=== PATIENT | female | born 1930 | race African-American/Black ===

== ENCOUNTER 2017-03-04 07:20 | Inpatient (IN) | payer MEDICARE, OTHER ==
[~2017-03-04] VITALS: Ht 149.9 cm; Wt 65.8 kg
[2017-03-04 10:15] VITALS: BP 150/64
--- NOTE | 2017-03-04 12:11 | History & Physical ---
History and Physical History & Physicial Dictated for Int Med-Dr Hunt no. [id number]. KEVIN GARIBAY March 04, 2017 12:11
[2017-03-04 12:33] VITALS: BP 155/67
[2017-03-04] MEDS ORDERED: ACETAMINOPHEN-1 EAC1 ORAL (12:53)
[2017-03-04] MEDS ORDERED: FERROUS SULFAT500 G1 PO (12:53)
[2017-03-04] MEDS ORDERED: LATANOPROST2.5 ML BOTH EYES (12:53)
[2017-03-04] MEDS ORDERED: BENAZEPRIL HCL5 MG ORAL (12:53)
[2017-03-04] MEDS ORDERED: ASPIRIN-LOW81 MG ORAL (12:53)
[2017-03-04] MEDS ORDERED: Morphine Sulfate 2mg/ml Inj IVP PRN (14:15)
--- NOTE | 2017-03-04 14:22 | Consultation ---
History of Present Illness General Date patient seen: March 04, 2017 Referring physician: Dr. Bejarano Reason for Consultation: inpatient management Present Illness HPI 86 year old female with hx of HTN, was taken to [place] with CC of abdominal pain and weakness. she was diagnosed to have gallstone pancreatitis with possible CBD mass vs stone. she is transferred to [facility] for further care. Allergies: Coded Allergies: NO KNOWN ALLERGIES (Verified Allergy, Unknown, 03/04/17) Medication History Scheduled Aspirin (Aspirin EC), 81 MG ORAL DAILY, (Reported) Benazepril Hcl (Benazepril Hcl), 20 MG ORAL DAILY, (Reported) Ferrous Sulfate, Dried (Ferrous Sulfate), 325 MG PO DAILY, (Reported) Latanoprost* (Xalatan*), 1 DROP BOTH EYES BEDTIME, (Reported) Scheduled PRN Acetaminophen With Codeine (T#3) (Tylenol #3 Tab*), 1 TAB ORAL Q6HR PRN for For Pain, (Reported) Patient History Healthcare decision maker Resuscitation status Full Code Advanced Directive on File Past Medical/Surgical History Past Medical/Surgical History: (1) HTN (hypertension) Review of Systems All Other Systems: negative except mentioned in HPI Physical Exam General Appearance: WD/WN, alert Lines, tubes and drains: peripheral, central line Neck: non-tender, normal alignment Respiratory/Chest: chest wall non-tender, lungs clear Cardiovascular/Chest: normal peripheral pulses, normal rate Last 24 Hour Vital Signs Date Time Temp Pulse Resp B/P Pulse Ox O2 Delivery O2 Flow Rate FiO2 03/04/17 12:33 97.5 65 18 155/67 96 Room Air 03/04/17 10:15 97.9 62 18 150/64 96 Room Air Height (Feet): 4 Height (Inches): 11.00 Weight (Pounds): 145 Medications Current Medications Medications (Trade) Dose Ordered Sig/Keenan Route PRN Reason Start Time Stop Time Status Last Admin Dose Admin Dextrose (Dextrose 50%) STAT PRN IV Hypoglycemia 03/04/17 13:45 04/03/17 13:44 UNV Dextrose/ Electrolytes (D5 0.45%NS W/ KCl 20mEq) 1,000 ml @ 55 mls/hr [id number] IV 03/04/17 13:30 04/03/17 13:29 UNV Morphine Sulfate (Morphine Sulfate) 2 mg ONCE ONCE IVP 03/04/17 13:30 03/04/17 13:31 UNV Morphine Sulfate (Morphine Sulfate) 2 mg Q3HR PRN IVP Moderate Pain (Pain Scale 4-6) 03/04/17 13:45 03/11/17 13:44 UNV Pantoprazole (Protonix) 40 mg DAILY IV 03/05/17 09:00 04/04/17 08:59 UNV Assessment/Plan Problem List: (1) Cholecystitis ICD Codes: K81.9 - Cholecystitis, unspecified SNOMED: 32223753, 77141635 (2) Common bile duct (CBD) obstruction ICD Codes: K83.1 - Obstruction of bile duct SNOMED: 31796424 (3) Pancreatitis ICD Codes: K85.90 - Acute pancreatitis without necrosis or infection, unspecified SNOMED: 27311250 (4) HTN (hypertension) ICD Codes: I10 - Essential (primary) hypertension SNOMED: 16112623 Assessment/Plan npo iV antibiotics IV flfudis GI evaluation monitor bp IV antihypertensives STEPHANIE DUFFY March 04, 2017 14:21
[2017-03-04] MEDS ORDERED: Enalaprilat 2.5mg/2ml Inj IV PRN (14:30)
[2017-03-04] MEDS ORDERED: Mylanta II UD 30ml ORAL PRN (14:30)
[2017-03-04] MEDS ORDERED: Morphine Sulfate 2mg/ml Inj IVP ONE (14:30)
[2017-03-04] MEDS ORDERED: Nitroglycerin Subl 0.4mg tab (Bottle Of 25) SL PRN (14:30)
[2017-03-04 16:02] VITALS: BP 156/76
[2017-03-04] MEDS: D5 1/2NS w/KCl 20mEq 1,000 ML IV SCH (16:20)
[2017-03-04] MEDS: Morphine Sulfate 2mg/ml Inj IVP PRN (17:36)
[2017-03-04] MEDS ORDERED: D5 1/2NS 1,000 ML IV SCH (17:40)
--- NOTE | 2017-03-04 18:32 | History and Physical Report ---
DATE OF ADMISSION: 03/04/[address] Hunt. CHIEF COMPLAINT: The patient is an 86-year-old female who presents with chief complaint of stomach pain. HISTORY OF PRESENT ILLNESS: It began approximately two weeks prior to admission. The patient has had off and on epigastric pain. Pain radiates to her back and to her right shoulder. The patient states the pain also radiates into her chest. The patient has had fevers and chills. The patient denies nausea or vomiting. The patient presented to [facility] emergency room. The patient is transferred to [facility] for insurance purposes. The patient is admitted for epigastric pain to rule out acute cholecystitis. REVIEW OF SYSTEMS: Constitutional: The patient denies weight loss or weight gain. The patient complains of subjective fevers and chills as above. HEENT: The patient denies ear or throat pain. The patient denies headache. Cardiovascular: The patient complains of chest pain as above. The patient denies palpitations. Abdominal: The patient complains of epigastric pain as above. The patient denies nausea, vomiting, or constipation. Genitourinary: The patient denies dysuria or increased frequency of urination. Neuromuscular: The patient denies seizures or generalized weakness. PAST MEDICAL HISTORY: Significant for, 1. Hypertension. 2. Glaucoma. 3. History of bilateral cataracts. PAST SURGICAL HISTORY: Significant for, 1. Total abdominal hysterectomy. 2. Colon resection secondary to polyps. 3. Cataract surgery bilaterally. CURRENT MEDICATIONS: 1. Iron sulfate 325 mg one tablet p.o. daily. 2. Aspirin 81 mg one tablet p.o. daily. 3. Tylenol No. 3 p.r.n. for pain. 4. Benazepril 20 mg one tablet p.o. daily. 5. Latanoprost one drop in each eye twice daily. ALLERGIES: No known drug allergies. SOCIAL HISTORY: The patient is a . The patient lives with her adult daughter who is present during the interview. The patient denies tobacco or alcohol use. PHYSICAL EXAMINATION: VITAL SIGNS: Temperature 98.6, respirations 19, pulse 75, and blood pressure 153/58. GENERAL: The patient is a well-developed, well-nourished female who is in no apparent distress. HEENT: Eyes, pupils are equal and responsive to light and accommodation. Extraocular movements are intact. NECK: Supple without lymphadenopathy. CHEST: Lungs are clear to auscultation bilaterally without wheezes or rales. CARDIOVASCULAR: Regular rate. S1 and S2 normal without murmurs, rubs, or gallops. ABDOMEN: Soft and nondistended with decreased bowel sounds. No evidence of hepatosplenomegaly. Currently no rebound or guarding. EXTREMITIES: Negative for clubbing, cyanosis, or edema. GENITAL AND RECTAL: Refused. NEUROLOGIC: Cranial nerves II through XII are grossly with no focal deficits. Motor strength is 5/5 bilaterally. Deep tendon reflexes are 2+ plantar. LABORATORY STUDIES: WBC 14.3, hemoglobin 12.1, hematocrit 35.8, and platelets 231,000. Sodium 139, potassium decreased at 3.0, chloride 102, CO2 25, BUN 14, creatinine 0.88, glucose 157, and lipase elevated at 350. A CT scan of the abdomen from [place], cholelithiasis with distended gallbladder and gallbladder wall thickening. ASSESSMENT: This is an 86-year-old female, 1. Epigastric pain. 2. Cholelithiasis. 3. Acute cholecystitis. 4. Possible sepsis. 5. Hypertension. 6. Glaucoma. TREATMENT: 1. Epigastric pain/cholelithiasis/cholecystitis. General Surgery consultation is pending. A Gastroenterology consultation is pending. We will follow recommendations of Gastroenterology and General Surgery. 2. Hypertension. Continue Lotensin as above. 3. Glaucoma. Continue Xalatan as above. El Bejarano M.D. DR: GLENNA JOB#: [id number] CC:
[2017-03-04 20:22] VITALS: BP 135/60
[2017-03-04] MEDS: Heparin 5000 units/ml inj SUBQ SCH (20:55)
[2017-03-04] MEDS ORDERED: Miralax 17gm pkt ORAL PRN (21:00)
[2017-03-04] MEDS: Piperacillin/Tazobactam 3.375 GM in NS 110 ML IVPB SCH (21:58)
[2017-03-05] VITALS (11 sets, daily range): BP systolic 131–163; BP diastolic 63–87
[2017-03-05] MEDS: Piperacillin/Tazobactam 3.375 GM in NS 110 ML IVPB SCH (05:55)
[2017-03-05 08:37] LABS: MEAN CORPUSCULAR HEMOGLOBIN 29.2 PG (27.0-31.0); MEAN CORPUSCULAR HGB CONC 31.9 G/DL (32.0-36.0); MEAN CORPUSCULAR VOLUME 91 FL (80-99); MEAN PLATELET VOLUME 10.5 FL (6.5-10.1); PLATELET COUNT 221 K/UL (150-450); RED BLOOD COUNT 4.08 M/UL (4.20-5.40); RED CELL DISTRIBUTION WIDTH 14.4 % (11.6-14.8); WHITE BLOOD COUNT 14.6 K/UL (4.8-10.8)
[2017-03-05 08:50] LABS: ALANINE AMINOTRANSFERASE 152 U/L (3-33); ALBUMIN/GLOBULIN RATIO 0.7 (1.0-2.7); ANION GAP 16 (5-15); ASPARTATE AMINO TRANSFERASE 108 U/L (5-40); CALCIUM 9.1 mg/dL (8.6-10.2); CARBON DIOXIDE 25 mEQ/L (20-30); CHLORIDE 102 mEQ/L (98-107); CREATININE 0.8 mg/dL (0.5-0.9); SODIUM 143 mEQ/L (135-145)
[2017-03-05] MEDS ORDERED: Pantoprazole Inj IVP SCH (09:00)
[2017-03-05] MEDS ORDERED: Pantoprazole Inj IV SCH (09:00)
[2017-03-05] MEDS ORDERED: Aspirin EC 81mg tab ORAL SCH (09:00)
[2017-03-05] MEDS: Heparin 5000 units/ml inj SUBQ SCH ×3 (09:00→21:04)
[2017-03-05 09:01] LABS: FERRITIN 301 ng/mL (13-150); THYROID STIMULATING HORMONE 0.836 uIU/mL (0.300-4.500)
[2017-03-05] MEDS: Morphine Sulfate 2mg/ml Inj IVP PRN (09:15)
[2017-03-05 09:18] LABS: HEMOLYSIS 0; IRON 15 ug/dL (37-145); TOTAL IRON BINDING CAPACITY 180 ug/dL (250-400)
[2017-03-05 09:29] LABS: AMYLASE 789 U/L (10-110); LIPASE 920 U/L (< 60)
--- NOTE | 2017-03-05 09:38 | Diagnostic Imaging Report ---
Indications: Abdominal pain, gallstones Technique: Coronal and axial T2-weighted single shot fast spin-echo breath-hold, axial T2-weighted fat-saturated fast spin-echo and 2-D fiesta, coronal and coronal oblique 3-D MRCP sequences of the abdomen performed without IV gadolinium administration. Patient refused to complete additional exam sequences. Findings: Comparison: None 9 mm circumscribed nodular signal void lesion resides within the central aspect of the common bile duct adjacent to the ampulla of Vater. Distal to this, the intrahepatic and extrahepatic bile ducts are diffusely dilated, common bile but measuring up to 22 mm in diameter. Gallbladder is likewise dilated and contains multiple signal void filling defects in its lumen, largest nodular and measuring 22 mm. It demonstrates apparent mild mural edema versus adjacent fluid. Minimal fluid is also noted adjacent to the liver, spleen, and both kidneys. Pancreas unremarkable. Pancreatic duct not dilated. Liver demonstrates mild diffuse periportal edema. Spleen unremarkable. Adrenal glands unremarkable. Fluid signal circumscribed foci in both renal cortices and sinuses. Remainder visualized abdominal anatomy unremarkable. Subsegmental atelectasis and dependent portions both lung bases. Small right pleural effusion. IMPRESSION: 9 mm obstructing stone at central aspect common bile duct with prominent diffuse bile duct dilation Choledocholithiasis with gallbladder distention and mural edema versus adjacent fluid. Acute cholecystitis not excludable. Periportal edema likely secondary to above. Must also consider elevated right heart pressure, hepatitis Mild ascites Bilateral renal cortical and parapelvic cysts Pulmonary bibasal subsegmental atelectasis Small right pleural effusion, nonspecific, may be secondary to above Critical results discussed with Dr. Hunt, attending physician, and Dr. Villanueva, consulting incident commander, by telephone at time of this dictation
[2017-03-05 09:41] LABS: BILIRUBIN,DIRECT 4.4 mg/dL (0.1-0.3)
[2017-03-05] MEDS: D5 1/2NS w/KCl 20mEq 1,000 ML IV SCH ×3 (11:01→20:00)
--- NOTE | 2017-03-05 11:17 | Consultation ---
Consult Note Consult Note ID Dic # [id number] ALEX ESPARZA M.D. March 05, 2017 11:17
[2017-03-05 11:37] LABS: ANISOCYTOSIS 1+; BAND NEUTROPHILS % (MANUAL) 0 % (0-8); BASOPHILS % (MANUAL) 0 % (0-2); EOSINOPHILS % (MANUAL) 0 % (0-3); HYPOCHROMASIA 1+; LYMPHOCYTES % (MANUAL) 6 % (20-45); NEUTROPHILS % (MANUAL) 91 % (45-75); PLATELET ESTIMATE ADEQUATE; PLATELET MORPHOLOGY NORMAL; TOTAL CELLS COUNTED 100
[2017-03-05 11:46] LABS: RETICULOCYTE COUNT 1.6 % (0.0-2.0)
--- NOTE | 2017-03-05 12:14 | Pre-Procedure Note/Attestation ---
Pre-Procedure Note/Attestation Complete Prior to Procedure Planned Procedure: not applicable Procedure Narrative: ercp Indications for Procedure Pre-Operative Diagnosis: choledocholithiasis Attestation I attest that I discussed the nature of the procedure; its benefits; risks and complications; and alternatives (and the risks and benefits of such alternatives ), prior to the procedure, with the patient (or the patient's legal arborist representative). I attest that, if there was a reasonable possibility of needing a blood transfusion, the patient (or the patient's legal arborist representative) was given the [facility] standardized written summary, pursuant to the [place] Blood Safety Act ([place] Health and Safety Code # 1645, as amended). I attest that I re-evaluated the patient just prior to the surgery and that there has been no change in the patient's H&P, except as documented below: REJI BRICENO March 05, 2017 12:14
[2017-03-05] MEDS ORDERED: Potassium Chloride 20 MEQ in D5W 275 ML IV SCH (12:15)
[2017-03-05] MEDS ORDERED: KCl 10% 20 mEq/15ml liquid ORAL SCH (12:15)
[2017-03-05] MEDS ORDERED: KCl 10% 40mEq/30ml liquid ORAL SCH (12:15)
[2017-03-05] MEDS ORDERED: Iothalamate Meglumine 60% 30ML INJ ONE (12:30)
--- NOTE | 2017-03-05 12:30 | Pulmonology Progress Note ---
Assessment/Plan Problems: (1) Cholecystitis (2) Common bile duct (CBD) obstruction (3) Pancreatitis (4) HTN (hypertension) Assessment/Plan improving for ERCP today supplement K might go to med/surg Subjective ROS Limited/Unobtainable: No Constitutional: Reports: no symptoms HEENT: Repors: no symptoms Respiratory: Reports: no symptoms Allergies: Coded Allergies: NO KNOWN ALLERGIES (Verified Allergy, Unknown, 03/04/17) Objective Last 24 Hour Vital Signs Date Time Temp Pulse Resp B/P Pulse Ox O2 Delivery O2 Flow Rate FiO2 03/05/17 12:03 97.2 85 20 150/69 96 Room Air 03/05/17 08:44 101.7 03/05/17 08:00 95.2 81 20 153/87 96 Room Air 03/05/17 07:47 102.0 03/05/17 04:00 71 03/05/17 04:00 100.4 82 19 141/63 95 Room Air 03/05/17 00:07 98.4 73 20 145/70 95 Room Air 03/05/17 00:00 70 03/04/17 20:22 100.9 91 19 135/60 95 Room Air 03/04/17 20:00 87 03/04/17 16:32 161/70 03/04/17 16:02 97.5 66 18 156/76 98 Room Air 03/04/17 16:00 64 03/04/17 12:33 97.5 65 18 155/67 96 Room Air Intake and Output 03/04/17 03/05/17 19:00 07:00 Intake Total 55 ml 770.0 ml Output Total 500 ml Balance -445 ml 770.0 ml Intake IV Total 55 ml 770.0 ml Output Urine Total 500 ml # Voids 2 Objective comfortable, no new complains General Appearance: WD/WN HEENT: normocephalic, atraumatic Respiratory/Chest: chest wall non-tender, lungs clear Cardiovascular: normal peripheral pulses, normal rate Abdomen: normal bowel sounds, soft, non tender, no organomegaly Extremities: no cyanosis Skin: no rash, no lesions Neurologic/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 normal, no motor/sensory deficits Lymphatic: no neck adenopathy Laboratory Tests 03/05/17 07:55: White Blood Count 14.6H, Red Blood Count 4.08L, Hemoglobin 11.9L, Hematocrit 37.2, Mean Corpuscular Volume 91, Mean Corpuscular Hemoglobin 29.2, Mean Corpuscular Hemoglobin Concent 31.9L, Red Cell Distribution Width 14.4, Platelet Count 221, Mean Platelet Volume 10.5H, Neutrophils (%) (Auto) , Lymphocytes (%) (Auto) , Monocytes (%) (Auto) , Eosinophils (%) (Auto) , Basophils (%) (Auto) , Differential Total Cells Counted 100, Neutrophils % ( Manual) 91H, Lymphocytes % (Manual) 6L, Monocytes % (Manual) 3, Eosinophils % ( Manual) 0, Basophils % (Manual) 0, Band Neutrophils 0, Platelet Estimate Adequate, Platelet Morphology Normal, Hypochromasia 1+, Anisocytosis 1+, Reticulocyte Count 1.6, Activated Partial Thromboplast Time 30, Sodium Level 143 , Potassium Level 3.0L, Chloride Level 102, Carbon Dioxide Level 25, Anion Gap 16H, Blood Urea Nitrogen 10, Creatinine 0.8, Estimat Glomerular Filtration Rate , Glucose Level 156H, Calcium Level 9.1, Iron Level 15L, Total Iron Binding Capacity 180L, Percent Iron Saturation 8L, Unsaturated Iron Binding 165, Ferritin 301H, Total Bilirubin 6.9H, Direct Bilirubin 4.4H, Aspartate Amino Transf (AST/SGOT) 108H, Alanine Aminotransferase (ALT/SGPT) 152H, Alkaline Phosphatase 254H, Total Protein 7.0, Albumin 3.1L, Globulin 3.9, Albumin/ Globulin Ratio 0.7L, Amylase Level 789*H, Lipase 920H, Carcinoembryonic Antigen 3.0, Vitamin B12 Level 288, Folate [Pending], Thyroid Stimulating Hormone (TSH) 0.836, Free Thyroxine 1.57 Current Medications Medications (Trade) Dose Ordered Sig/Keenan Route PRN Reason Start Time Stop Time Status Last Admin Dose Admin Acetaminophen (Tylenol) 650 mg Q4H PRN ORAL fever>100.5 03/04/17 13:30 04/03/17 13:29 03/05/17 07:45 Al Hydroxide/Mg Hydroxide (Mylanta II) 30 ml Q6H PRN ORAL dyspepsia 03/04/17 14:30 04/03/17 14:29 Aspirin (Ecotrin) 81 mg DAILY ORAL 03/05/17 09:00 04/04/17 08:59 03/05/17 08:58 Dextrose (Dextrose 50%) STAT PRN IV Hypoglycemia 03/04/17 14:30 04/03/17 14:29 Dextrose/ Electrolytes (D5 0.45%NS W/ KCl 20mEq) 1,000 ml @ 55 mls/hr [id number] IV 03/04/17 16:00 04/03/17 15:59 03/05/17 11:01 Diphenhydramine HCl (Benadryl) 25 mg Q6H PRN ORAL Itching/Pruritis 03/04/17 14:30 04/03/17 14:29 Enalaprilat (Vasotec) 2.5 mg Q4H PRN IV sbp more than 200 03/04/17 14:30 04/03/17 14:29 Heparin Sodium (Porcine) (Heparin 5000 units/ml) 5,000 units EVERY 12 HOURS SUBQ 03/04/17 21:00 04/03/17 20:59 03/04/17 20:55 Hydralazine HCl (Apresoline) 20 mg Q4H PRN IV sbp more than 160 03/04/17 14:30 04/03/17 14:29 03/04/17 16:32 Latanoprost 1 drop 1 drop BEDTIME BOTH EYES 03/04/17 21:00 04/03/17 20:59 03/04/17 20:49 Meropenem 1 gm/ Sodium Chloride 110 ml @ 220 mls/hr Q12HR IVPB 03/05/17 13:00 03/10/17 12:59 Morphine Sulfate (Morphine Sulfate) 2 mg Q3H PRN IVP Moderate Pain (Pain Scale 4-6) 03/04/17 13:45 03/11/17 13:44 03/05/17 09:15 Nitroglycerin (Ntg) 0.4 mg Q5M X 3 DOSES PRN SL Prn Chest Pain 03/04/17 14:30 04/03/17 14:29 Ondansetron HCl (Zofran) 4 mg Q6H PRN IVP Nausea & Vomiting 03/04/17 14:30 04/03/17 14:29 Pantoprazole (Protonix) 40 mg DAILY IV 03/05/17 09:00 04/04/17 08:59 03/05/17 08:58 Polyethylene Glycol (Miralax) 17 gm HSPRN PRN ORAL Constipation 03/04/17 21:00 04/03/17 20:59 Potassium Chloride/Dextrose (KCl/D5W) 285 ml @ 125 mls/hr ONCE IV 03/05/17 12:15 03/05/17 14:32 Temazepam (Restoril) 15 mg HSPRN PRN ORAL Insomnia 03/04/17 21:00 03/11/17 20:59 STEPHANIE DUFFY March 05, 2017 12:30
[2017-03-05] MEDS ORDERED: Indomethacin 50mg Supp ONE (12:31)
[2017-03-05] MEDS ORDERED: fentaNYL 100 mcg/2 mL IV ONE (13:00)
[2017-03-05] MEDS ORDERED: Meropenem 1 GM in NS 110 ML IVPB SCH (13:00)
[2017-03-05] MEDS ORDERED: Tubing IV Secondary IV ONE (13:00)
[2017-03-05] MEDS ORDERED: Propofol 10mg/ml 20ml IV ONE (13:00)
[2017-03-05] MEDS ORDERED: Lidocaine 1% MPF 10mg/ml 5ml ONE (13:00)
[2017-03-05] MEDS ORDERED: LR 1000ml ONE (13:00)
--- NOTE | 2017-03-05 13:32 | Anethesia Preoperative Eval ---
Anesthesia Pre-op PMH/ROS General Date of Evaluation: March 05, 2017 Time of Evaluation: 13:30 Anesthesiologist: damaris ASA Score: ASA 2 Mallampati Score Class I : Soft palate, uvula, fauces, pillars visible Class II: Soft palate, uvula, fauces visible Class III: Soft palate, base of uvula visible Class IV: Only hard plate visible Mallampati Classification: Class III Surgeon: carl Diagnosis: common bile duct stone Surgical Procedure: ERCP Anesthesia History: none Family History: no anesthesia problems Allergies: Coded Allergies: NO KNOWN ALLERGIES (Verified Allergy, Unknown, 03/04/17) Medications: see eMAR Past Medical History Cardiovascular: Reports: HTN Pulmonary: Denies: COPD, HUBER, asthma, other Gastrointestinal/Genitourinary: Reports: GERD, other - common bile duct stone Neurologic/Psychiatric: Denies: CVA, TIA, dementia, depression/anxiety, other Endocrine: Denies: DM, hypothyroidism, other, steroids HEENT: Reports: glaucoma Hematology/Immune: Denies: DVT, anemia, bleeding disorder, other Musculoskeletal/Integumentary: Denies: DDD, DJD, OA, RA, edema, other Other: obesity PSxH Narrative: colon surgery Anesthesia Pre-op Phys. Exam Physician Exam Last Vital Signs Date Time Temp Pulse Resp B/P Pulse Ox O2 Delivery O2 Flow Rate FiO2 03/05/17 12:03 97.2 85 20 150/69 96 Room Air Constitutional: NAD Neurologic: CN 2-12 intact Cardiovascular: RRR Respiratory: CTA Gastrointestinal: S/NT/ND Airway Exam Mallampati Score: Class II MO: full ROM: full Teeth: missing Dentures: no lower, no upper Anesthesia Pre-op A/P Labs Hematology Test 03/05/17 07:55 White Blood Count 14.6 K/UL (4.8-10.8) H Red Blood Count 4.08 M/UL (4.20-5.40) L Hemoglobin 11.9 G/DL (12.0-16.0) L Hematocrit 37.2 % (37.0-47.0) Mean Corpuscular Volume 91 FL (80-99) Mean Corpuscular Hemoglobin 29.2 PG (27.0-31.0) Mean Corpuscular Hemoglobin Concent 31.9 G/DL (32.0-36.0) L Red Cell Distribution Width 14.4 % (11.6-14.8) Platelet Count 221 K/UL (150-450) Mean Platelet Volume 10.5 FL (6.5-10.1) H Neutrophils (%) (Auto) % (45.0-75.0) Lymphocytes (%) (Auto) % (20.0-45.0) Monocytes (%) (Auto) % (1.0-10.0) Eosinophils (%) (Auto) % (0.0-3.0) Basophils (%) (Auto) % (0.0-2.0) Differential Total Cells Counted 100 Neutrophils % (Manual) 91 % (45-75) H Lymphocytes % (Manual) 6 % (20-45) L Monocytes % (Manual) 3 % (1-10) Eosinophils % (Manual) 0 % (0-3) Basophils % (Manual) 0 % (0-2) Band Neutrophils 0 % (0-8) Platelet Estimate Adequate Platelet Morphology Normal Hypochromasia 1+ Anisocytosis 1+ Reticulocyte Count 1.6 % (0.0-2.0) Coagulation Test 03/05/17 07:55 Activated Partial Thromboplast Time 30 SEC (23-33) Chemistry Test 03/05/17 07:55 Sodium Level 143 mEQ/L (135-145) Potassium Level 3.0 mEQ/L (3.4-4.9) L Chloride Level 102 mEQ/L (98-107) Carbon Dioxide Level 25 mEQ/L (20-30) Anion Gap 16 (5-15) H Blood Urea Nitrogen 10 mg/dL (7-23) Creatinine 0.8 mg/dL (0.5-0.9) Estimat Glomerular Filtration Rate mL/min (>60) Glucose Level 156 mg/dL (74-106) H Calcium Level 9.1 mg/dL (8.6-10.2) Iron Level 15 ug/dL (37-145) L Total Iron Binding Capacity 180 ug/dL (250-400) L Percent Iron Saturation 8 % (15-50) L Unsaturated Iron Binding 165 ug/dL (112-346) Ferritin 301 ng/mL (13-150) H Total Bilirubin 6.9 mg/dL (0.0-1.2) H Direct Bilirubin 4.4 mg/dL (0.1-0.3) H Aspartate Amino Transf (AST/SGOT) 108 U/L (5-40) H Alanine Aminotransferase (ALT/SGPT) 152 U/L (3-33) H Alkaline Phosphatase 254 U/L (35-104) H Total Protein 7.0 g/dL (6.6-8.7) Albumin 3.1 g/dL (3.5-5.2) L Globulin 3.9 g/dL Albumin/Globulin Ratio 0.7 (1.0-2.7) L Amylase Level 789 U/L (10-110) *H Lipase 920 U/L (< 60) H Carcinoembryonic Antigen 3.0 ng/mL Vitamin B12 Level 288 pg/mL (211-946) Folate Pending Thyroid Stimulating Hormone (TSH) 0.836 uIU/mL (0.300-4.500) Free Thyroxine 1.57 ng/dL (0.86-1.85) Studies Pre-op Studies: EKG - sr Risk Assessment & Plan Plan: mac Status Change Before Surgery: No Pre-Antibiotics Drug: none BRENDAN MONTALVO CRNA March 05, 2017 13:32
--- NOTE | 2017-03-05 13:34 | Immediate Post-Op Evaluation ---
Immediate Post-Op Evalulation Immediate Post-Op Evalulation Procedure: ERCP Date of Evaluation: March 05, 2017 Time of Evaluation: 13:20 IV Fluids: 300 Blood Pressure Systolic: 132 Blood Pressure Diastolic: 60 Pulse Rate: 70 Respiratory Rate: 14 O2 Sat by Pulse Oximetry: 100 Temperature (Fahrenheit): 97.8 Nausea: No Vomiting: No Complications none Patient Status: awake, reacts Hydration Status: adequate Drug: none BRENDAN MONTALVO CRNA March 05, 2017 13:34
--- NOTE | 2017-03-05 13:35 | 48 Hour Post Anesthesia Eval ---
Post Anesthesia Evaluation Procedure: ERCP Date of Evaluation: March 05, 2017 Time of Evaluation: 13:34 Blood Pressure Systolic: 135 0: 65 Pulse Rate: 70 O2 Sat by Pulse Oximetry: 100 Airway: patent Nausea: No Vomiting: No Hydration Status: adequate Cardiopulmonary Status: stable Mental Status/LOC: patient returned to baseline Post-Anesthesia Complications: none Follow-up care needed: N/A BRENDAN MONTALVO CRNA March 05, 2017 13:35
[2017-03-05] MEDS ORDERED: Nitroglycerin Subl 0.4mg tab (Bottle Of 25) SL PRN (18:15)
[2017-03-05] MEDS ORDERED: Morphine Sulfate 2mg/ml Inj IVP PRN (18:30)
[2017-03-05] MEDS ORDERED: Mylanta II UD 30ml ORAL PRN (18:30)
[2017-03-05] MEDS ORDERED: Enalaprilat 2.5mg/2ml Inj IV PRN (18:30)
--- NOTE | 2017-03-05 20:25 | Internal Med Progress Note ---
Subjective Date of Service: March 05, 2017 Physician Name Garibay,Kevin Attending Physician Rahul Hunt MD Current Medications Medications (Trade) Dose Ordered Sig/Keenan Route PRN Reason Start Time Stop Time Status Last Admin Dose Admin Acetaminophen (Tylenol) 650 mg Q4H PRN ORAL fever>100.5 03/05/17 18:30 04/04/17 18:29 Al Hydroxide/Mg Hydroxide (Mylanta II) 30 ml Q6H PRN ORAL dyspepsia 03/05/17 18:30 04/04/17 18:29 Aspirin (Ecotrin) 81 mg DAILY ORAL 03/06/17 09:00 04/05/17 08:59 Dextrose (Dextrose 50%) STAT PRN IV Hypoglycemia 03/05/17 18:30 04/04/17 18:29 Dextrose/ Electrolytes 1,000 ml @ 55 mls/hr [id number] IV 03/05/17 18:30 04/04/17 18:29 03/05/17 20:00 Diphenhydramine HCl (Benadryl) 25 mg Q6H PRN ORAL Itching/Pruritis 03/05/17 18:30 04/04/17 18:29 Enalaprilat (Vasotec) 2.5 mg Q4H PRN IV sbp more than 200 03/05/17 18:30 04/04/17 18:29 Heparin Sodium (Porcine) (Heparin 5000 units/ml) 5,000 units EVERY 12 HOURS SUBQ 03/05/17 21:00 04/04/17 20:59 Latanoprost (Xalatan) 1 drop BEDTIME BOTH EYES 03/05/17 21:00 04/04/17 20:59 Meropenem/Sodium Chloride (Merrem/Sodium Chloride) 110 ml @ 220 mls/hr Q12HR IVPB 03/05/17 21:00 03/10/17 20:59 Morphine Sulfate (Morphine Sulfate) 2 mg Q3H PRN IVP Moderate Pain (Pain Scale 4-6) 03/05/17 18:30 03/12/17 18:29 Nitroglycerin (Ntg) 0.4 mg Q5M X 3 DOSES PRN SL Prn Chest Pain 03/05/17 18:15 04/04/17 18:14 Ondansetron HCl (Zofran) 4 mg Q6H PRN IVP Nausea & Vomiting 03/05/17 18:30 04/04/17 18:29 Pantoprazole (Protonix) 40 mg DAILY IV 03/06/17 09:00 04/05/17 08:59 Polyethylene Glycol (Miralax) 17 gm HSPRN PRN ORAL Constipation 03/05/17 21:00 04/04/17 20:59 Temazepam (Restoril) 15 mg HSPRN PRN ORAL Insomnia 03/05/17 21:00 03/12/17 20:59 Allergies: Coded Allergies: NO KNOWN ALLERGIES (Verified Allergy, Unknown, 03/04/17) ROS Limited/Unobtainable: No Constitutional: Reports: no symptoms HEENT: Reports: no symptoms Cardiovascular: Reports: no symptoms Respiratory: Reports: no symptoms Gastrointestinal/Abdominal: Reports: abdominal pain Genitourinary: Reports: no symptoms Neurologic/Psychiatric: Reports: no symptoms Subjective 86 YO F admitted with epigastric pain. Now choledocholithiasis. S/P ERCP . Cover for Int Med-Dr Hunt. Objective Last Vital Signs Date Time Temp Pulse Resp B/P Pulse Ox O2 Delivery O2 Flow Rate FiO2 03/05/17 19:40 98.1 77 20 163/69 95 Room Air 03/05/17 13:25 3.0 Laboratory Tests Test 03/05/17 07:55 White Blood Count 14.6 K/UL (4.8-10.8) H Red Blood Count 4.08 M/UL (4.20-5.40) L Hemoglobin 11.9 G/DL (12.0-16.0) L Hematocrit 37.2 % (37.0-47.0) Mean Corpuscular Volume 91 FL (80-99) Mean Corpuscular Hemoglobin 29.2 PG (27.0-31.0) Mean Corpuscular Hemoglobin Concent 31.9 G/DL (32.0-36.0) L Red Cell Distribution Width 14.4 % (11.6-14.8) Platelet Count 221 K/UL (150-450) Mean Platelet Volume 10.5 FL (6.5-10.1) H Neutrophils (%) (Auto) % (45.0-75.0) Lymphocytes (%) (Auto) % (20.0-45.0) Monocytes (%) (Auto) % (1.0-10.0) Eosinophils (%) (Auto) % (0.0-3.0) Basophils (%) (Auto) % (0.0-2.0) Differential Total Cells Counted 100 Neutrophils % (Manual) 91 % (45-75) H Lymphocytes % (Manual) 6 % (20-45) L Monocytes % (Manual) 3 % (1-10) Eosinophils % (Manual) 0 % (0-3) Basophils % (Manual) 0 % (0-2) Band Neutrophils 0 % (0-8) Platelet Estimate Adequate Platelet Morphology Normal Hypochromasia 1+ Anisocytosis 1+ Reticulocyte Count 1.6 % (0.0-2.0) Activated Partial Thromboplast Time 30 SEC (23-33) Sodium Level 143 mEQ/L (135-145) Potassium Level 3.0 mEQ/L (3.4-4.9) L Chloride Level 102 mEQ/L (98-107) Carbon Dioxide Level 25 mEQ/L (20-30) Anion Gap 16 (5-15) H Blood Urea Nitrogen 10 mg/dL (7-23) Creatinine 0.8 mg/dL (0.5-0.9) Estimat Glomerular Filtration Rate mL/min (>60) Glucose Level 156 mg/dL (74-106) H Calcium Level 9.1 mg/dL (8.6-10.2) Iron Level 15 ug/dL (37-145) L Total Iron Binding Capacity 180 ug/dL (250-400) L Percent Iron Saturation 8 % (15-50) L Unsaturated Iron Binding 165 ug/dL (112-346) Ferritin 301 ng/mL (13-150) H Total Bilirubin 6.9 mg/dL (0.0-1.2) H Direct Bilirubin 4.4 mg/dL (0.1-0.3) H Aspartate Amino Transf (AST/SGOT) 108 U/L (5-40) H Alanine Aminotransferase (ALT/SGPT) 152 U/L (3-33) H Alkaline Phosphatase 254 U/L (35-104) H Total Protein 7.0 g/dL (6.6-8.7) Albumin 3.1 g/dL (3.5-5.2) L Globulin 3.9 g/dL Albumin/Globulin Ratio 0.7 (1.0-2.7) L Amylase Level 789 U/L (10-110) *H Lipase 920 U/L (< 60) H Carcinoembryonic Antigen 3.0 ng/mL Vitamin B12 Level 288 pg/mL (211-946) Folate Pending Thyroid Stimulating Hormone (TSH) 0.836 uIU/mL (0.300-4.500) Free Thyroxine 1.57 ng/dL (0.86-1.85) Intake and Output 03/04/17 03/05/17 19:00 07:00 Intake Total 55 ml 770.0 ml Output Total 500 ml Balance -445 ml 770.0 ml IV Total 55 ml 770.0 ml Output Urine Total 500 ml # Voids 2 Objective General: alert, cooperative, no distress, appears stated age Head: normocephalic, without obvious abnormality, atraumatic Eyes: conjunctivae/corneas clear. PERRL, EOM's intact Throat: lips, mucosa, and tongue normal. MMM Neck: supple, symmetrical, trachea midline, and no JVD Lungs: clear to auscultation bilaterally Heart: regular rate and rhythm, S1, S2 normal, no murmur, click, rub or gallop Abdomen: soft, tender, non-distended, bowel sounds decreased; no masses or organomegaly Extremities: extremities normal, atraumatic, no cyanosis or edema Pulses: 2+ and symmetric Skin: skin color, texture, turgor normal; no rashes or lesions Neurologic: grossly normal, no focal deficits Assessment/Plan Problem List: (1) Pain, abdominal, epigastric (2) Choledocholithiasis with acute cholecystitis Assessment & Plan: S/P ERCP 03/05/17. (3) Glaucoma (4) Acute gallstone pancreatitis (5) Common bile duct (CBD) obstruction Assessment & Plan: S/P ERCP 03/05/17. See GI note. (6) Pancreatitis (7) HTN (hypertension) Assessment & Plan: Continue vasotec Status: not improved KEVIN GARIBAY March 05, 2017 20:25
[2017-03-05] MEDS ORDERED: Miralax 17gm pkt ORAL PRN (21:00)
[2017-03-05] MEDS: Meropenem 1 GM in NS 110 ML IVPB SCH (21:02)
--- NOTE | 2017-03-05 21:17 | Procedure Note ---
DATE OF PROCEDURE: 03/05/2017 SURGEON: Nik Villanueva M.D. PROCEDURE: ERCP with sphincterotomy and stone removal. ANESTHESIA: Per MOUNTING INSPECTOR, Mariam Tarrillion. INSTRUMENT: Olympus adult ERCP scope. INDICATION: Choledocholithiasis and cholangitis. REASON FOR PROCEDURE: The procedure, risks, benefits, and possible consequences, including hemorrhage, aspiration, perforation and infection, and alternative treatments, were explained to the patient/legal guardian by Dr. Nik Villanueva and the patient/legal guardian understood and accepted these risks. DESCRIPTION OF PROCEDURE: After informed consent was obtained and the patient was adequately sedated, ERCP scope was advanced from the mouth into the second portion of duodenum. Then using a sphincterotome, common bile duct was selectively cannulated. Initial cholangiogram showed dilated common bile duct. 11 mm with a large filling defect in the distal common bile duct suggestive of stone. Then, 95% of sphincterotomy was performed. Then, a balloon was used to sweep the duct multiple times to remove the large stone, black colored about 1 cm from the common bile duct. Post stone removal, balloon occlusion cholangiogram showed no further filling defect in the distal common bile duct. Flow of contrast was excellent from common bile duct to duodenum, so no stent was placed. The patient tolerated the procedure very well without any complication. SUMMARY OF FINDINGS: Status post endoscopic retrograde cholangiopancreatography, sphincterotomy, and stone removal. RECOMMENDATIONS: 1. Start clear liquid diet and advance as tolerated. 2. Followup for control of pain. 3. We will repeat liver function tests for tomorrow. I want to thank, Dr. Rahul Hunt, for this kind referral. Nik Villanueva M.D. DR: JOON JOB#: [id number] CC: Rahul Hunt M.D.; Fax#: [phone]
--- NOTE | 2017-03-05 23:03 | Consultation ---
DATE OF CONSULTATION: 03/05/2017 INFECTIOUS DISEASE CONSULTATION CONSULTING PHYSICIAN: Juwan Calderon M.D REFERRING PHYSICIAN: Sofia Mueller M.D. REASON FOR CONSULTATION: Evaluation of the patient for cholecystitis, bacteremia, and antibiotic management. HISTORY OF PRESENT ILLNESS: The patient is an 86-year-old female with multiple medical problems as listed below, who was admitted to this medical center because of abdominal pain with radiation to the back. The patient was found to have probable cholecystitis and pancreatitis. The patient has been started on IV antibiotics. Infectious Disease consultation has been requested for further evaluation of the patient and antibiotic management. PAST MEDICAL HISTORY: 1. Hypertension. 2. History of glaucoma. 3. History of bilateral cataract surgery. 4. History of total abdominal hysterectomy. 5. History of colon polyps, status post resection. FAMILY HISTORY: Not contributory. MEDICATIONS: IV Zosyn. REVIEW OF SYSTEMS: HEENT: No recent change in vision or hearing. Pulmonary: No cough or shortness of breath. Cardiovascular: No chest pain or palpitations. Gastrointestinal/Abdomen: As mentioned above. Genitourinary: The patient has dysuria prior to admission. Neurologic: No seizure. PHYSICAL EXAMINATION: VITAL SIGNS: Temperature 101.7, blood pressure 153/87, pulse 86, and respiratory rate 18. HEENT: Mild pale conjunctivae. No icterus. NECK: No lymphadenopathy. CHEST: Coarse breathing sounds. HEART: S1 and S2. ABDOMEN: Soft at the time of my exam (the patient has received pain medication). EXTREMITIES: No cyanosis. NEUROLOGIC: Awake and alert. LABORATORY AND DIAGNOSTIC DATA: White blood cells 14.6, hemoglobin 11, and platelets 105,000. BUN 10 and creatinine 0.8. AST, ALT, and alkaline phosphatase elevated. Amylase 1289 and lipase 920. MRI of the abdomen shows a 9 mm obstructing stone at the central aspect of common bile duct, clearly gallbladder wall distention, consistent with acute cholecystitis. Blood culture reportedly growing Gram-negative rods. ASSESSMENT: The patient is an 86-year-old female with, 1. Cholecystitis. 2. Pancreatitis. 3. Gram-negative bacteremia. 4. Fever. PLAN: 1. We will change Zosyn to meropenem. 2. Monitor CBC. 3. Monitor BMP. 4. Monitor cultures (blood). 5. CBC. 6. Liver function tests. 7. We will follow GI recommendation. Also, plan for ERCP. 8. Based on the patient's clinical course and labs, we will do further recommendations. Thank you, Dr. Mueller, for allowing me to participate in the care of this patient. I will follow the patient with you during this hospitalization. Juwan Calderon M.D. DR: LUCINDA JOB#: [id number] CC:
[2017-03-06] VITALS (7 sets, daily range): BP systolic 116–162; BP diastolic 61–86
[2017-03-06 06:50] LABS: INR 1.5 (0.9-1.1); PROTHROMBIN TIME 15.4 SEC (9.30-11.50)
[2017-03-06 07:04] LABS: MEAN CORPUSCULAR HEMOGLOBIN 29.3 PG (27.0-31.0); MEAN CORPUSCULAR HGB CONC 32.5 G/DL (32.0-36.0); MEAN CORPUSCULAR VOLUME 90 FL (80-99); MEAN PLATELET VOLUME 10.1 FL (6.5-10.1); PLATELET COUNT 199 K/UL (150-450); RED BLOOD COUNT 3.74 M/UL (4.20-5.40); RED CELL DISTRIBUTION WIDTH 14.5 % (11.6-14.8)
[2017-03-06 07:25] LABS: ALANINE AMINOTRANSFERASE 106 U/L (3-33); ALBUMIN/GLOBULIN RATIO 0.7 (1.0-2.7); ANION GAP 15 (5-15); ASPARTATE AMINO TRANSFERASE 62 U/L (5-40); CALCIUM 9.3 mg/dL (8.6-10.2); CARBON DIOXIDE 24 mEQ/L (20-30); CHLORIDE 104 mEQ/L (98-107); CREATININE 0.8 mg/dL (0.5-0.9); HEMOLYSIS 3; POTASSIUM 3.6 mEQ/L (3.4-4.9); SODIUM 143 mEQ/L (135-145); TOTAL PROTEIN 6.7 g/dL (6.6-8.7)
[2017-03-06 07:28] LABS: HEMOLYSIS 2; IRON 31 ug/dL (37-145); LACTATE DEHYDROGENASE 261 U/L (135-230); TOTAL IRON BINDING CAPACITY 158 ug/dL (250-400)
[2017-03-06 07:44] LABS: BILIRUBIN,DIRECT 1.6 mg/dL (0.1-0.3)
[2017-03-06 07:59] LABS: ERYTHROCYTE SEDIMENTATION RATE 106 MM/HR (0-42)
[2017-03-06] MEDS: Aspirin EC 81mg tab ORAL SCH (08:18)
[2017-03-06] MEDS: Meropenem 1 GM in NS 110 ML IVPB SCH ×2 (08:19→20:43)
[2017-03-06] MEDS: Heparin 5000 units/ml inj SUBQ SCH ×2 (08:21→21:00)
[2017-03-06] MEDS ORDERED: Pantoprazole Inj IV SCH (09:00)
[2017-03-06 09:34] LABS: BAND NEUTROPHILS % (MANUAL) 1 % (0-8); BASOPHILS % (MANUAL) 0 % (0-2); EOSINOPHILS % (MANUAL) 1 % (0-3); LYMPHOCYTES % (MANUAL) 13 % (20-45); NEUTROPHILS % (MANUAL) 78 % (45-75); PLATELET ESTIMATE ADEQUATE; PLATELET MORPHOLOGY NORMAL; TOTAL CELLS COUNTED 100
--- NOTE | 2017-03-06 09:57 | Infectious Diseases Prog Note ---
Assessment/Plan Assessment/Plan A: The patient is an 86-year-old female 2 Leukocytosis Fever Cholecystitis Transaminitis Pancreatitis SP ERCP with sphincterotomy and stone removal 03/05 SP abdominal pain with radiation to the back RN called the lab no blood cx done in this pt , not clear to me why I was celled for a +ve blood Cx GNR ( on this pt ) HTN Glaucoma Bilateral cataract surgery SP Total abdominal hysterectomy History of colon polyps, status post resection PLAN: cont meropenem d # 2 03/05 SP Zosyn d# 2 Monitor CBC Monitor BMP and LFT Monitor cultures (blood) GI is following need lap-choly Subjective Constitutional: Denies: anorexia, chills, drenching sweats, fatigue, fever, no symptoms, other Allergies: Coded Allergies: NO KNOWN ALLERGIES (Verified Allergy, Unknown, 03/04/17) Objective Vital Signs Last 24 Hour Vital Signs Date Time Temp Pulse Resp B/P Pulse Ox O2 Delivery O2 Flow Rate FiO2 03/06/17 08:18 98 162/84 03/06/17 08:15 97.1 98 20 162/84 100 Room Air 03/06/17 04:00 98.5 59 20 142/82 Room Air 03/06/17 00:22 98.2 68 20 136/68 98 Room Air 03/05/17 21:54 77 163/69 03/05/17 19:40 98.1 77 20 163/69 95 Room Air 03/05/17 16:00 97.1 83 20 151/64 Room Air 03/05/17 16:00 65 03/05/17 13:50 97.6 76 20 159/74 98 Room Air 03/05/17 13:40 77 22 151/73 98 Room Air 03/05/17 13:35 70 100 03/05/17 13:34 70 14 100 03/05/17 13:30 82 23 147/73 98 Room Air 03/05/17 13:25 80 20 138/69 100 Nasal Cannula 3.0 03/05/17 13:20 97.9 83 17 131/66 100 Nasal Cannula 3.0 03/05/17 12:03 97.2 85 20 150/69 96 Room Air 03/05/17 12:00 82 Height (Feet): 4 Height (Inches): 11.00 Weight (Pounds): 145 HEENT: anicteric Respiratory/Chest: normal breath sounds Cardiovascular: regularly irregular Abdomen: non distended Laboratory Tests Test 03/06/17 04:30 03/06/17 08:40 White Blood Count 11.0 K/UL (4.8-10.8) H Red Blood Count 3.74 M/UL (4.20-5.40) L Hemoglobin 11.0 G/DL (12.0-16.0) L Hematocrit 33.7 % (37.0-47.0) L Mean Corpuscular Volume 90 FL (80-99) Mean Corpuscular Hemoglobin 29.3 PG (27.0-31.0) Mean Corpuscular Hemoglobin Concent 32.5 G/DL (32.0-36.0) Red Cell Distribution Width 14.5 % (11.6-14.8) Platelet Count 199 K/UL (150-450) Mean Platelet Volume 10.1 FL (6.5-10.1) Neutrophils (%) (Auto) % (45.0-75.0) Lymphocytes (%) (Auto) % (20.0-45.0) Monocytes (%) (Auto) % (1.0-10.0) Eosinophils (%) (Auto) % (0.0-3.0) Basophils (%) (Auto) % (0.0-2.0) Differential Total Cells Counted 100 Neutrophils % (Manual) 78 % (45-75) H Lymphocytes % (Manual) 13 % (20-45) L Monocytes % (Manual) 7 % (1-10) Eosinophils % (Manual) 1 % (0-3) Basophils % (Manual) 0 % (0-2) Band Neutrophils 1 % (0-8) Platelet Estimate Adequate Platelet Morphology Normal Red Blood Cell Morphology Normal Erythrocyte Sedimentation Rate 106 MM/HR (0-42) H Reticulocyte Count Pending Prothrombin Time 15.4 SEC (9.30-11.50) H Prothromb Time International Ratio 1.5 (0.9-1.1) H Activated Partial Thromboplast Time 31 SEC (23-33) Sodium Level 143 mEQ/L (135-145) Potassium Level 3.6 mEQ/L (3.4-4.9) Chloride Level 104 mEQ/L (98-107) Carbon Dioxide Level 24 mEQ/L (20-30) Anion Gap 15 (5-15) Blood Urea Nitrogen 12 mg/dL (7-23) Creatinine 0.8 mg/dL (0.5-0.9) Estimat Glomerular Filtration Rate mL/min (>60) Glucose Level 104 mg/dL (74-106) Calcium Level 9.3 mg/dL (8.6-10.2) Iron Level 31 ug/dL (37-145) L Total Iron Binding Capacity 158 ug/dL (250-400) L Percent Iron Saturation 20 % (15-50) Unsaturated Iron Binding 127 ug/dL (112-346) Total Bilirubin 3.2 mg/dL (0.0-1.2) H Direct Bilirubin 1.6 mg/dL (0.1-0.3) H Aspartate Amino Transf (AST/SGOT) 62 U/L (5-40) H Alanine Aminotransferase (ALT/SGPT) 106 U/L (3-33) H Alkaline Phosphatase 259 U/L (35-104) H Lactate Dehydrogenase 261 U/L (135-230) H Total Protein 6.7 g/dL (6.6-8.7) Albumin 2.8 g/dL (3.5-5.2) L Globulin 3.9 g/dL Albumin/Globulin Ratio 0.7 (1.0-2.7) L Carcinoembryonic Antigen 2.3 ng/mL Vitamin B12 Level 261 pg/mL (211-946) Folate Pending Stool Occult Blood Pending Current Medications Medications (Trade) Dose Ordered Sig/Keenan Route PRN Reason Start Time Stop Time Status Last Admin Dose Admin Acetaminophen (Tylenol) 650 mg Q4H PRN ORAL fever>100.5 03/05/17 18:30 04/04/17 18:29 03/06/17 08:18 Al Hydroxide/Mg Hydroxide (Mylanta II) 30 ml Q6H PRN ORAL dyspepsia 03/05/17 18:30 04/04/17 18:29 Amlodipine Besylate (Norvasc) 5 mg DAILY ORAL 03/06/17 09:00 04/05/17 08:59 03/06/17 08:18 Aspirin (Ecotrin) 81 mg DAILY ORAL 03/06/17 09:00 04/05/17 08:59 03/06/17 08:18 Dextrose (Dextrose 50%) STAT PRN IV Hypoglycemia 5/25/17 18:30 04/04/17 18:29 Dextrose/ Electrolytes 1,000 ml @ 55 mls/hr [id number] IV 03/05/17 18:30 04/04/17 18:29 03/05/17 20:00 Diphenhydramine HCl (Benadryl) 25 mg Q6H PRN ORAL Itching/Pruritis 03/05/17 18:30 04/04/17 18:29 Enalaprilat (Vasotec) 2.5 mg Q4H PRN IV sbp more than 200 03/05/17 18:30 04/04/17 18:29 Heparin Sodium (Porcine) (Heparin 5000 units/ml) 5,000 units EVERY 12 HOURS SUBQ 03/05/17 21:00 04/04/17 20:59 03/06/17 08:21 Latanoprost (Xalatan) 1 drop BEDTIME BOTH EYES 03/05/17 21:00 04/04/17 20:59 03/05/17 21:02 Meropenem/Sodium Chloride (Merrem/Sodium Chloride) 110 ml @ 220 mls/hr Q12HR IVPB 03/05/17 21:00 03/10/17 20:59 03/06/17 08:19 Morphine Sulfate (Morphine Sulfate) 2 mg Q3H PRN IVP Moderate Pain (Pain Scale 4-6) 03/05/17 18:30 03/12/17 18:29 Nitroglycerin (Ntg) 0.4 mg Q5M X 3 DOSES PRN SL Prn Chest Pain 03/05/17 18:15 04/04/17 18:14 Ondansetron HCl (Zofran) 4 mg Q6H PRN IVP Nausea & Vomiting 03/05/17 18:30 04/04/17 18:29 Pantoprazole (Protonix) 40 mg DAILY IV 03/06/17 09:00 04/05/17 08:59 03/06/17 08:19 Polyethylene Glycol (Miralax) 17 gm HSPRN PRN ORAL Constipation 03/05/17 21:00 04/04/17 20:59 Temazepam (Restoril) 15 mg HSPRN PRN ORAL Insomnia 03/05/17 21:00 03/12/17 20:59 ALEX ESPARZA M.D. March 06, 2017 09:57
[2017-03-06 10:23] LABS: RETICULOCYTE COUNT 2.5 % (0.0-2.0)
[2017-03-06] MEDS ORDERED: Norco 5mg/325mg tab ORAL PRN (10:30)
[2017-03-06] MEDS ORDERED: Morphine Sulfate 2mg/ml Inj IVP PRN (10:44)
[2017-03-06 11:03] LABS: PATH BLOOD SMEAR/OMC SENT TO PATHOLOGIST
[2017-03-06] MEDS: D5 1/2NS w/KCl 20mEq 1,000 ML IV SCH (13:02)
--- NOTE | 2017-03-06 13:10 | GI Progress Note ---
Assessment/Plan Problems: (1) Acute gallstone pancreatitis ICD Codes: K85.10 - Biliary acute pancreatitis without necrosis or infection SNOMED: 816293423 (2) Pain, abdominal, epigastric ICD Codes: R10.13 - Epigastric pain SNOMED: 89040875 (3) Choledocholithiasis with acute cholecystitis ICD Codes: K80.42 - Calculus of bile duct with acute cholecystitis without obstruction SNOMED: 50127730 (4) Common bile duct (CBD) obstruction ICD Codes: K83.1 - Obstruction of bile duct SNOMED: 08037929 (5) Pancreatitis ICD Codes: K85.90 - Acute pancreatitis without necrosis or infection, unspecified SNOMED: 50114070 Status: stable Status Narrative Discussed with Dr. Villanueva. Assessment/Plan S/P ERCP SUMMARY OF FINDINGS: Status post endoscopic retrograde cholangiopancreatography, sphincterotomy, and stone removal. RECOMMENDATIONS: patient will require surgical consult for cholecystectomy, can be done as outpatient. monitor LFTs >> downtrending soft diet, tolerating pain mgmt fu labs Subjective Subjective abdominal pain greatly improved Objective Last 24 Hour Vital Signs Date Time Temp Pulse Resp B/P Pulse Ox O2 Delivery O2 Flow Rate FiO2 03/06/17 12:01 160/86 03/06/17 11:48 97.5 83 20 160/86 99 Room Air 03/06/17 09:59 84 152/80 03/06/17 08:18 98 162/84 03/06/17 08:15 97.1 98 20 162/84 100 Room Air 03/06/17 04:00 98.5 59 20 142/82 Room Air 03/06/17 00:22 98.2 68 20 136/68 98 Room Air 03/05/17 21:54 77 163/69 03/05/17 19:40 98.1 77 20 163/69 95 Room Air 03/05/17 16:00 97.1 83 20 151/64 Room Air 03/05/17 16:00 65 03/05/17 13:50 97.6 76 20 159/74 98 Room Air 03/05/17 13:40 77 22 151/73 98 Room Air 03/05/17 13:35 70 100 03/05/17 13:34 70 14 100 03/05/17 13:30 82 23 147/73 98 Room Air 03/05/17 13:25 80 20 138/69 100 Nasal Cannula 3.0 03/05/17 13:20 97.9 83 17 131/66 100 Nasal Cannula 3.0 Intake and Output 03/05/17 03/06/17 19:00 07:00 Intake Total 245 ml 660 ml Output Total 0 ml Balance 245 ml 660 ml Intake Oral 120 ml IV Total 125 ml 660 ml Estimated Blood Loss 0 ml # Voids 4 3 Laboratory Tests Test 03/06/17 04:30 03/06/17 08:40 White Blood Count 11.0 K/UL (4.8-10.8) H Red Blood Count 3.74 M/UL (4.20-5.40) L Hemoglobin 11.0 G/DL (12.0-16.0) L Hematocrit 33.7 % (37.0-47.0) L Mean Corpuscular Volume 90 FL (80-99) Mean Corpuscular Hemoglobin 29.3 PG (27.0-31.0) Mean Corpuscular Hemoglobin Concent 32.5 G/DL (32.0-36.0) Red Cell Distribution Width 14.5 % (11.6-14.8) Platelet Count 199 K/UL (150-450) Mean Platelet Volume 10.1 FL (6.5-10.1) Neutrophils (%) (Auto) % (45.0-75.0) Lymphocytes (%) (Auto) % (20.0-45.0) Monocytes (%) (Auto) % (1.0-10.0) Eosinophils (%) (Auto) % (0.0-3.0) Basophils (%) (Auto) % (0.0-2.0) Differential Total Cells Counted 100 Neutrophils % (Manual) 78 % (45-75) H Lymphocytes % (Manual) 13 % (20-45) L Monocytes % (Manual) 7 % (1-10) Eosinophils % (Manual) 1 % (0-3) Basophils % (Manual) 0 % (0-2) Band Neutrophils 1 % (0-8) Platelet Estimate Adequate Platelet Morphology Normal Red Blood Cell Morphology Normal Erythrocyte Sedimentation Rate 106 MM/HR (0-42) H Reticulocyte Count 2.5 % (0.0-2.0) H Prothrombin Time 15.4 SEC (9.30-11.50) H Prothromb Time International Ratio 1.5 (0.9-1.1) H Activated Partial Thromboplast Time 31 SEC (23-33) Sodium Level 143 mEQ/L (135-145) Potassium Level 3.6 mEQ/L (3.4-4.9) Chloride Level 104 mEQ/L (98-107) Carbon Dioxide Level 24 mEQ/L (20-30) Anion Gap 15 (5-15) Blood Urea Nitrogen 12 mg/dL (7-23) Creatinine 0.8 mg/dL (0.5-0.9) Estimat Glomerular Filtration Rate mL/min (>60) Glucose Level 104 mg/dL (74-106) Calcium Level 9.3 mg/dL (8.6-10.2) Iron Level 31 ug/dL (37-145) L Total Iron Binding Capacity 158 ug/dL (250-400) L Percent Iron Saturation 20 % (15-50) Unsaturated Iron Binding 127 ug/dL (112-346) Total Bilirubin 3.2 mg/dL (0.0-1.2) H Direct Bilirubin 1.6 mg/dL (0.1-0.3) H Aspartate Amino Transf (AST/SGOT) 62 U/L (5-40) H Alanine Aminotransferase (ALT/SGPT) 106 U/L (3-33) H Alkaline Phosphatase 259 U/L (35-104) H Lactate Dehydrogenase 261 U/L (135-230) H Total Protein 6.7 g/dL (6.6-8.7) Albumin 2.8 g/dL (3.5-5.2) L Globulin 3.9 g/dL Albumin/Globulin Ratio 0.7 (1.0-2.7) L Carcinoembryonic Antigen 2.3 ng/mL Vitamin B12 Level 261 pg/mL (211-946) Folate Pending Stool Occult Blood Pending Height (Feet): 4 Height (Inches): 11.00 Weight (Pounds): 145 General Appearance: no apparent distress, alert Cardiovascular: normal rate Respiratory/Chest: normal breath sounds, no respiratory distress Abdominal Exam: normal bowel sounds, non tender Siria Landeros N.Magan March 06, 2017 13:10
--- NOTE | 2017-03-06 19:08 | Internal Med Progress Note ---
Subjective Physician Name Rahul Hunt Attending Physician Rahul Hunt MD Current Medications Medications (Trade) Dose Ordered Sig/Keenan Route PRN Reason Start Time Stop Time Status Last Admin Dose Admin Acetaminophen (Tylenol) 650 mg Q4H PRN ORAL fever>100.5 03/05/17 18:30 04/04/17 18:29 03/06/17 08:18 Acetaminophen/ Hydrocodone Bitart ([place] 5/325) 1 tab Q4H PRN ORAL Moderate Pain (Pain Scale 4-6) 03/06/17 10:30 03/13/17 10:29 03/06/17 11:12 Al Hydroxide/Mg Hydroxide (Mylanta II) 30 ml Q6H PRN ORAL dyspepsia 03/05/17 18:30 04/04/17 18:29 Amlodipine Besylate (Norvasc) 5 mg DAILY ORAL 03/06/17 09:00 04/05/17 08:59 03/06/17 08:18 Aspirin (Ecotrin) 81 mg DAILY ORAL 03/06/17 09:00 04/05/17 08:59 03/06/17 08:18 Clonidine HCl (Catapres) 0.1 mg Q4H PRN ORAL For High Blood Pressure 03/06/17 11:00 04/05/17 10:59 03/06/17 12:01 Dextrose (Dextrose 50%) STAT PRN IV Hypoglycemia 03/05/17 18:30 04/04/17 18:29 Dextrose/ Electrolytes 1,000 ml @ 55 mls/hr [id number] IV 03/05/17 18:30 04/04/17 18:29 03/06/17 13:02 Diphenhydramine HCl (Benadryl) 25 mg Q6H PRN ORAL Itching/Pruritis 03/05/17 18:30 04/04/17 18:29 Enalaprilat (Vasotec) 2.5 mg Q4H PRN IV sbp more than 200 03/05/17 18:30 04/04/17 18:29 Heparin Sodium (Porcine) (Heparin 5000 units/ml) 5,000 units EVERY 12 HOURS SUBQ 03/05/17 21:00 04/04/17 20:59 03/06/17 08:21 Latanoprost (Xalatan) 1 drop BEDTIME BOTH EYES 03/05/17 21:00 04/04/17 20:59 03/05/17 21:02 Meropenem/Sodium Chloride (Merrem/Sodium Chloride) 110 ml @ 220 mls/hr Q12HR IVPB 03/05/17 21:00 03/10/17 20:59 03/06/17 08:19 Morphine Sulfate (Morphine Sulfate) 2 mg Q3H PRN IVP Severe Pain (Pain Scale 7-10) 03/06/17 10:44 03/12/17 18:29 Nitroglycerin (Ntg) 0.4 mg Q5M X 3 DOSES PRN SL Prn Chest Pain 03/05/17 18:15 04/04/17 18:14 Ondansetron HCl (Zofran) 4 mg Q6H PRN IVP Nausea & Vomiting 03/05/17 18:30 04/04/17 18:29 Pantoprazole (Protonix) 40 mg DAILY IV 03/06/17 09:00 04/05/17 08:59 03/06/17 08:19 Polyethylene Glycol (Miralax) 17 gm HSPRN PRN ORAL Constipation 03/05/17 21:00 04/04/17 20:59 Temazepam (Restoril) 15 mg HSPRN PRN ORAL Insomnia 03/05/17 21:00 03/12/17 20:59 Allergies: Coded Allergies: NO KNOWN ALLERGIES (Verified Allergy, Unknown, 03/04/17) Subjective awake, alert, responsive, No more abdominal pain or CP / SOB Objective Last Vital Signs Date Time Temp Pulse Resp B/P Pulse Ox O2 Delivery O2 Flow Rate FiO2 03/06/17 15:49 97.8 77 20 116/77 100 Room Air 03/05/17 13:25 3.0 Laboratory Tests Test 03/06/17 04:30 03/06/17 08:40 White Blood Count 11.0 K/UL (4.8-10.8) H Red Blood Count 3.74 M/UL (4.20-5.40) L Hemoglobin 11.0 G/DL (12.0-16.0) L Hematocrit 33.7 % (37.0-47.0) L Mean Corpuscular Volume 90 FL (80-99) Mean Corpuscular Hemoglobin 29.3 PG (27.0-31.0) Mean Corpuscular Hemoglobin Concent 32.5 G/DL (32.0-36.0) Red Cell Distribution Width 14.5 % (11.6-14.8) Platelet Count 199 K/UL (150-450) Mean Platelet Volume 10.1 FL (6.5-10.1) Neutrophils (%) (Auto) % (45.0-75.0) Lymphocytes (%) (Auto) % (20.0-45.0) Monocytes (%) (Auto) % (1.0-10.0) Eosinophils (%) (Auto) % (0.0-3.0) Basophils (%) (Auto) % (0.0-2.0) Differential Total Cells Counted 100 Neutrophils % (Manual) 78 % (45-75) H Lymphocytes % (Manual) 13 % (20-45) L Monocytes % (Manual) 7 % (1-10) Eosinophils % (Manual) 1 % (0-3) Basophils % (Manual) 0 % (0-2) Band Neutrophils 1 % (0-8) Platelet Estimate Adequate Platelet Morphology Normal Red Blood Cell Morphology Normal Erythrocyte Sedimentation Rate 106 MM/HR (0-42) H Reticulocyte Count 2.5 % (0.0-2.0) H Prothrombin Time 15.4 SEC (9.30-11.50) H Prothromb Time International Ratio 1.5 (0.9-1.1) H Activated Partial Thromboplast Time 31 SEC (23-33) Sodium Level 143 mEQ/L (135-145) Potassium Level 3.6 mEQ/L (3.4-4.9) Chloride Level 104 mEQ/L (98-107) Carbon Dioxide Level 24 mEQ/L (20-30) Anion Gap 15 (5-15) Blood Urea Nitrogen 12 mg/dL (7-23) Creatinine 0.8 mg/dL (0.5-0.9) Estimat Glomerular Filtration Rate mL/min (>60) Glucose Level 104 mg/dL (74-106) Calcium Level 9.3 mg/dL (8.6-10.2) Iron Level 31 ug/dL (37-145) L Total Iron Binding Capacity 158 ug/dL (250-400) L Percent Iron Saturation 20 % (15-50) Unsaturated Iron Binding 127 ug/dL (112-346) Total Bilirubin 3.2 mg/dL (0.0-1.2) H Direct Bilirubin 1.6 mg/dL (0.1-0.3) H Aspartate Amino Transf (AST/SGOT) 62 U/L (5-40) H Alanine Aminotransferase (ALT/SGPT) 106 U/L (3-33) H Alkaline Phosphatase 259 U/L (35-104) H Lactate Dehydrogenase 261 U/L (135-230) H Total Protein 6.7 g/dL (6.6-8.7) Albumin 2.8 g/dL (3.5-5.2) L Globulin 3.9 g/dL Albumin/Globulin Ratio 0.7 (1.0-2.7) L Carcinoembryonic Antigen 2.3 ng/mL Vitamin B12 Level 261 pg/mL (211-946) Folate Pending Stool Occult Blood Positive (NEGATIVE) Microbiology Date/Time Source Procedure Growth Status 03/04/17 16:00 Nasal Not Otherwise Specified MRSA Culture - Final NO METHICILLIN RESISTANT STAPH AUREUS... Complete Intake and Output 03/05/17 03/06/17 19:00 07:00 Intake Total 245 ml 660 ml Output Total 0 ml Balance 245 ml 660 ml Intake Oral 120 ml IV Total 125 ml 660 ml Estimated Blood Loss 0 ml # Voids 4 3 Objective General: No acute distress, awake and alert HEENT: NCAT, sclera anicteric, PERRL, EOMI. Neck: Supple, no significant jugular venous distention, Lungs: Good inspiratory effort, clear to auscultation bilaterally, no Wheeze or Rales. Heart: Regular rate and rhythm, normal S1/S2, no murmur Abdomen: soft, nontender, nondistended. Normoactive bowel sounds.Obesity. / Rectal: Refused and deferred. Extremities: No Cyanosis , clubbing or edema. Neuro: A&O x 3, Able to move all extremities Skin: warm, no rashes or lesions Psych: Normal mood and affect Assessment/Plan Assessment/Plan Acute Cholecystitis Transaminitis Gallstone Pancreatitis SP ERCP with sphincterotomy and stone removal from CBD 03/05/2017. GNR Bacteremia possible cholangitis HTN Glaucoma Bilateral cataract surgery SP Total abdominal hysterectomy History of colon polyps, status post resection Plan: Abx: Imipenem IVF Advance diet Surgical consult with Dr. Gonzalez Full code Heparin SQ Rahul Hunt MD March 06, 2017 19:08
[2017-03-07] VITALS (8 sets, daily range): BP systolic 126–167; BP diastolic 64–110
[2017-03-07] MEDS: D5 1/2NS w/KCl 20mEq 1,000 ML IV SCH (05:56)
[2017-03-07 06:12] LABS: BASOPHILS % (AUTO) 0.6 % (0.0-2.0); EOSINOPHILS % (AUTO) 1.9 % (0.0-3.0); LYMPHOCYTES % (AUTO) 22.3 % (20.0-45.0); MEAN CORPUSCULAR VOLUME 91 FL (80-99); MEAN PLATELET VOLUME 9.2 FL (6.5-10.1); NEUTROPHILS % (AUTO) 63.2 % (45.0-75.0); PLATELET COUNT 208 K/UL (150-450); RED BLOOD COUNT 3.61 M/UL (4.20-5.40); RED CELL DISTRIBUTION WIDTH 14.7 % (11.6-14.8); WHITE BLOOD COUNT 7.2 K/UL (4.8-10.8)
[2017-03-07 06:35] LABS: ALANINE AMINOTRANSFERASE 70 U/L (3-33); ALBUMIN/GLOBULIN RATIO 0.7 (1.0-2.7); ANION GAP 9 (5-15); ASPARTATE AMINO TRANSFERASE 32 U/L (5-40); CARBON DIOXIDE 27 mEQ/L (20-30); CHLORIDE 106 mEQ/L (98-107); CREATININE 0.7 mg/dL (0.5-0.9); HEMOLYSIS 1; POTASSIUM 3.7 mEQ/L (3.4-4.9); SODIUM 142 mEQ/L (135-145)
[2017-03-07 07:15] LABS: MAGNESIUM 1.7 mg/dL (1.7-2.5); PHOSPHORUS 2.1 mg/dL (2.5-4.8)
[2017-03-07 07:21] LABS: BILIRUBIN,DIRECT 0.6 mg/dL (0.1-0.3)
[2017-03-07] MEDS: Meropenem 1 GM in NS 110 ML IVPB SCH ×2 (08:37→21:26)
[2017-03-07] MEDS: Aspirin EC 81mg tab ORAL SCH (09:00)
[2017-03-07] MEDS: Heparin 5000 units/ml inj SUBQ SCH ×2 (09:00→21:00)
--- NOTE | 2017-03-07 11:01 | Pulmonology Progress Note ---
Assessment/Plan Problems: (1) Cholecystitis (2) Common bile duct (CBD) obstruction (3) Pancreatitis (4) HTN (hypertension) Assessment/Plan improving ERCP done yesterday, stone removed supplement K Iv antibiotics check cultures Subjective ROS Limited/Unobtainable: No Interval Events: late ntoe for 03/06, doing better, less pain Allergies: Coded Allergies: NO KNOWN ALLERGIES (Verified Allergy, Unknown, 03/04/17) Objective Last 24 Hour Vital Signs Date Time Temp Pulse Resp B/P Pulse Ox O2 Delivery O2 Flow Rate FiO2 03/07/17 09:54 98.1 72 17 145/70 99 Room Air 03/07/17 08:37 78 167/65 03/07/17 07:45 98.2 78 16 167/65 99 Room Air 03/07/17 04:00 98.2 85 20 160/82 100 Room Air 03/07/17 00:00 97.7 77 20 139/110 97 Room Air 03/06/17 20:00 98.4 73 20 130/61 98 Room Air 03/06/17 15:49 97.8 77 20 116/77 100 Room Air 03/06/17 12:01 160/86 03/06/17 11:48 97.5 83 20 160/86 99 Room Air Intake and Output 03/06/17 03/07/17 19:00 07:00 Intake Total 1340 ml 715 ml Balance 1340 ml 715 ml Intake Oral 1065 ml IV Total 275 ml 715 ml # Voids 3 4 # Bowel Movements 3 Objective comfortable, no new complains Microbiology Date/Time Source Procedure Growth Status 03/04/17 16:00 Nasal Not Otherwise Specified MRSA Culture - Final NO METHICILLIN RESISTANT STAPH AUREUS... Complete 03/04/17 21:00 Rectum VRE Culture - Final NO VANCOMYCIN RESISTANT ENTEROCOCCUS ... Complete Laboratory Tests 03/07/17 06:00: White Blood Count 7.2, Red Blood Count 3.61L, Hemoglobin 10.5L, Hematocrit 32.8L , Mean Corpuscular Volume 91, Mean Corpuscular Hemoglobin 29.0, Mean Corpuscular Hemoglobin Concent 32.0, Red Cell Distribution Width 14.7, Platelet Count 208, Mean Platelet Volume 9.2, Neutrophils (%) (Auto) 63.2, Lymphocytes (% ) (Auto) 22.3, Monocytes (%) (Auto) 12.0H, Eosinophils (%) (Auto) 1.9, Basophils (%) (Auto) 0.6, Sodium Level 142, Potassium Level 3.7, Chloride Level 106, Carbon Dioxide Level 27, Anion Gap 9, Blood Urea Nitrogen 9, Creatinine 0.7 , Estimat Glomerular Filtration Rate , Glucose Level 105, Calcium Level 9.0, Phosphorus Level 2.1L, Magnesium Level 1.7, Total Bilirubin 1.3H, Direct Bilirubin 0.6H, Aspartate Amino Transf (AST/SGOT) 32, Alanine Aminotransferase ( ALT/SGPT) 70H, Alkaline Phosphatase 182H, Total Protein 6.0L, Albumin 2.5L, Globulin 3.5, Albumin/Globulin Ratio 0.7L, Amylase Level 63, Lipase 35 Current Medications Medications (Trade) Dose Ordered Sig/Keenan Route PRN Reason Start Time Stop Time Status Last Admin Dose Admin Acetaminophen (Tylenol) 650 mg Q4H PRN ORAL fever>100.5 03/05/17 18:30 04/04/17 18:29 03/06/17 08:18 Acetaminophen/ Hydrocodone Bitart ([place] 5/325) 1 tab Q4H PRN ORAL Moderate Pain (Pain Scale 4-6) 03/06/17 10:30 03/13/17 10:29 03/06/17 11:12 Al Hydroxide/Mg Hydroxide (Mylanta II) 30 ml Q6H PRN ORAL dyspepsia 03/05/17 18:30 04/04/17 18:29 Amlodipine Besylate (Norvasc) 5 mg DAILY ORAL 03/06/17 09:00 04/05/17 08:59 03/07/17 08:37 Aspirin (Ecotrin) 81 mg DAILY ORAL 03/06/17 09:00 04/05/17 08:59 03/06/17 08:18 Clonidine HCl (Catapres) 0.1 mg Q4H PRN ORAL For High Blood Pressure 03/06/17 11:00 04/05/17 10:59 03/06/17 12:01 Dextrose (Dextrose 50%) STAT PRN IV Hypoglycemia 03/05/17 18:30 04/04/17 18:29 Dextrose/ Electrolytes 1,000 ml @ 55 mls/hr [id number] IV 03/05/17 18:30 04/04/17 18:29 03/07/17 05:56 Diphenhydramine HCl (Benadryl) 25 mg Q6H PRN ORAL Itching/Pruritis 03/05/17 18:30 04/04/17 18:29 Enalaprilat (Vasotec) 2.5 mg Q4H PRN IV sbp more than 200 03/05/17 18:30 04/04/17 18:29 Heparin Sodium (Porcine) (Heparin 5000 units/ml) 5,000 units EVERY 12 HOURS SUBQ 03/05/17 21:00 04/04/17 20:59 03/06/17 21:00 Latanoprost (Xalatan) 1 drop BEDTIME BOTH EYES 03/05/17 21:00 04/04/17 20:59 03/06/17 20:43 Meropenem/Sodium Chloride (Merrem/Sodium Chloride) 110 ml @ 220 mls/hr Q12HR IVPB 03/05/17 21:00 03/10/17 20:59 03/07/17 08:37 Morphine Sulfate (Morphine Sulfate) 2 mg Q3H PRN IVP Severe Pain (Pain Scale 7-10) 03/06/17 10:44 03/12/17 18:29 Nitroglycerin (Ntg) 0.4 mg Q5M X 3 DOSES PRN SL Prn Chest Pain 03/05/17 18:15 04/04/17 18:14 Ondansetron HCl (Zofran) 4 mg Q6H PRN IVP Nausea & Vomiting 03/05/17 18:30 04/04/17 18:29 Polyethylene Glycol (Miralax) 17 gm HSPRN PRN ORAL Constipation 03/05/17 21:00 04/04/17 20:59 Temazepam (Restoril) 15 mg HSPRN PRN ORAL Insomnia 03/05/17 21:00 03/12/17 20:59 STEPHANIE DUFFY March 07, 2017 11:01
--- NOTE | 2017-03-07 11:05 | Pulmonology Progress Note ---
Assessment/Plan Problems: (1) Cholecystitis (2) Common bile duct (CBD) obstruction (3) Pancreatitis (4) HTN (hypertension) Assessment/Plan wbc decreasing improving ERCP done yesterday, stone removed supplement K Iv antibiotics, on meropenem advance diet Subjective ROS Limited/Unobtainable: No Interval Events: was seen by surgery Allergies: Coded Allergies: NO KNOWN ALLERGIES (Verified Allergy, Unknown, 03/04/17) Objective Last 24 Hour Vital Signs Date Time Temp Pulse Resp B/P Pulse Ox O2 Delivery O2 Flow Rate FiO2 03/07/17 09:54 98.1 72 17 145/70 99 Room Air 03/07/17 08:37 78 167/65 03/07/17 07:45 98.2 78 16 167/65 99 Room Air 03/07/17 04:00 98.2 85 20 160/82 100 Room Air 03/07/17 00:00 97.7 77 20 139/110 97 Room Air 03/06/17 20:00 98.4 73 20 130/61 98 Room Air 03/06/17 15:49 97.8 77 20 116/77 100 Room Air 03/06/17 12:01 160/86 03/06/17 11:48 97.5 83 20 160/86 99 Room Air Intake and Output 03/06/17 03/07/17 19:00 07:00 Intake Total 1340 ml 715 ml Balance 1340 ml 715 ml Intake Oral 1065 ml IV Total 275 ml 715 ml # Voids 3 4 # Bowel Movements 3 Objective comfortable, no new complains Microbiology Date/Time Source Procedure Growth Status 03/04/17 16:00 Nasal Not Otherwise Specified MRSA Culture - Final NO METHICILLIN RESISTANT STAPH AUREUS... Complete 03/04/17 21:00 Rectum VRE Culture - Final NO VANCOMYCIN RESISTANT ENTEROCOCCUS ... Complete Laboratory Tests 03/07/17 06:00: White Blood Count 7.2, Red Blood Count 3.61L, Hemoglobin 10.5L, Hematocrit 32.8L , Mean Corpuscular Volume 91, Mean Corpuscular Hemoglobin 29.0, Mean Corpuscular Hemoglobin Concent 32.0, Red Cell Distribution Width 14.7, Platelet Count 208, Mean Platelet Volume 9.2, Neutrophils (%) (Auto) 63.2, Lymphocytes (% ) (Auto) 22.3, Monocytes (%) (Auto) 12.0H, Eosinophils (%) (Auto) 1.9, Basophils (%) (Auto) 0.6, Sodium Level 142, Potassium Level 3.7, Chloride Level 106, Carbon Dioxide Level 27, Anion Gap 9, Blood Urea Nitrogen 9, Creatinine 0.7 , Estimat Glomerular Filtration Rate , Glucose Level 105, Calcium Level 9.0, Phosphorus Level 2.1L, Magnesium Level 1.7, Total Bilirubin 1.3H, Direct Bilirubin 0.6H, Aspartate Amino Transf (AST/SGOT) 32, Alanine Aminotransferase ( ALT/SGPT) 70H, Alkaline Phosphatase 182H, Total Protein 6.0L, Albumin 2.5L, Globulin 3.5, Albumin/Globulin Ratio 0.7L, Amylase Level 63, Lipase 35 Current Medications Medications (Trade) Dose Ordered Sig/Keenan Route PRN Reason Start Time Stop Time Status Last Admin Dose Admin Acetaminophen (Tylenol) 650 mg Q4H PRN ORAL fever>100.5 03/05/17 18:30 04/04/17 18:29 03/06/17 08:18 Acetaminophen/ Hydrocodone Bitart ([place] 5/325) 1 tab Q4H PRN ORAL Moderate Pain (Pain Scale 4-6) 03/06/17 10:30 03/13/17 10:29 03/06/17 11:12 Al Hydroxide/Mg Hydroxide (Mylanta II) 30 ml Q6H PRN ORAL dyspepsia 03/05/17 18:30 04/04/17 18:29 Amlodipine Besylate (Norvasc) 5 mg DAILY ORAL 03/06/17 09:00 04/05/17 08:59 03/07/17 08:37 Aspirin (Ecotrin) 81 mg DAILY ORAL 03/06/17 09:00 04/05/17 08:59 03/06/17 08:18 Clonidine HCl (Catapres) 0.1 mg Q4H PRN ORAL For High Blood Pressure 03/06/17 11:00 04/05/17 10:59 03/06/17 12:01 Dextrose (Dextrose 50%) STAT PRN IV Hypoglycemia 03/05/17 18:30 04/04/17 18:29 Dextrose/ Electrolytes 1,000 ml @ 55 mls/hr [id number] IV 03/05/17 18:30 04/04/17 18:29 03/07/17 05:56 Diphenhydramine HCl (Benadryl) 25 mg Q6H PRN ORAL Itching/Pruritis 03/05/17 18:30 04/04/17 18:29 Enalaprilat (Vasotec) 2.5 mg Q4H PRN IV sbp more than 200 03/05/17 18:30 04/04/17 18:29 Heparin Sodium (Porcine) (Heparin 5000 units/ml) 5,000 units EVERY 12 HOURS SUBQ 03/05/17 21:00 04/04/17 20:59 03/06/17 21:00 Latanoprost (Xalatan) 1 drop BEDTIME BOTH EYES 03/05/17 21:00 04/04/17 20:59 03/06/17 20:43 Meropenem/Sodium Chloride (Merrem/Sodium Chloride) 110 ml @ 220 mls/hr Q12HR IVPB 03/05/17 21:00 03/10/17 20:59 03/07/17 08:37 Morphine Sulfate (Morphine Sulfate) 2 mg Q3H PRN IVP Severe Pain (Pain Scale 7-10) 03/06/17 10:44 03/12/17 18:29 Nitroglycerin (Ntg) 0.4 mg Q5M X 3 DOSES PRN SL Prn Chest Pain 03/05/17 18:15 04/04/17 18:14 Ondansetron HCl (Zofran) 4 mg Q6H PRN IVP Nausea & Vomiting 03/05/17 18:30 04/04/17 18:29 Polyethylene Glycol (Miralax) 17 gm HSPRN PRN ORAL Constipation 03/05/17 21:00 04/04/17 20:59 Temazepam (Restoril) 15 mg HSPRN PRN ORAL Insomnia 03/05/17 21:00 03/12/17 20:59 STEPHANIE DUFFY March 07, 2017 11:04
--- NOTE | 2017-03-07 11:06 | Consultation ---
Consult Note Consult Note CONSULTING PHYSICIAN: Mario Gonzalez M.D REFERRING PHYSICIAN: Rahul Hunt M.D. REASON FOR CONSULTATION: Gallstone Pancreatitis HISTORY OF PRESENT ILLNESS: The patient is an 86-year-old female with multiple medical problems as listed below, who was admitted to this medical center because of abdominal pain with radiation to the back. The patient was found to have probable cholecystitis and pancreatitis. Dr. Villanueva did an ERCP and retrieved a large stone from the common bile duct. She reports since stone retrieval she feels markedly better, back to normal. No pain, feels well. Good appetite. PAST MEDICAL HISTORY: 1. Hypertension. 2. History of glaucoma. 3. History of bilateral cataract surgery. 4. History of total abdominal hysterectomy. 5. History of colon polyps, status post resection. She's unsure of the details FAMILY HISTORY: Not contributory. MEDICATIONS: MAR reviewed REVIEW OF SYSTEMS: HEENT: No recent change in vision or hearing. Pulmonary: No cough or shortness of breath. Cardiovascular: No chest pain or palpitations. Gastrointestinal/Abdomen: As mentioned above. Genitourinary: The patient has dysuria prior to admission. Neurologic: No seizure. PHYSICAL EXAMINATION: VITAL SIGNS: AVSS HEENT: Mild pale conjunctivae. No icterus. NECK: No lymphadenopathy. CHEST: Coarse breathing sounds. HEART: S1 and S2. ABDOMEN: Soft at the time of my exam (the patient has received pain medication). EXTREMITIES: No cyanosis. NEUROLOGIC: Awake and alert. LABORATORY AND DIAGNOSTIC DATA: Reviewed in EMR Assessment/Plan ASSESSMENT: The patient is an 86-year-old female with, 1. Gallstone pancreatitis s/p ERCP 2. Plan interval Lap [facility] as outpatient PLAN: 1. Discharge when stable 2. My office will contact patient after weekend to schedule follow up and plan for surgery MARIO GONZALEZ March 07, 2017 11:06
--- NOTE | 2017-03-07 11:30 | Diagnostic Imaging Report ---
Indication: Abdominal pain. ERCP. Findings: Fluoroscopically captured images of the right upper quadrant of the abdomen demonstrate an endoscope with cannulation of the common bile duct and injection of contrast material. The CBD is dilated. Extraction balloon noted. Filling defects are noted and probably on the basis of air. The intrahepatic ducts are not well demonstrated on this study. The pancreatic duct was not cannulated. Impression: ERCP as above
[2017-03-07] MEDS ORDERED: Tubing IV Secondary IV ONE ×2 (13:54→14:08)
[2017-03-07] MEDS ORDERED: NS 275ml ONE (14:08)
--- NOTE | 2017-03-07 17:17 | Internal Med Progress Note ---
Subjective Date of Service: March 07, 2017 Physician Name Garibay,Kevin Attending Physician Rahul Hunt MD Current Medications Medications (Trade) Dose Ordered Sig/Keenan Route PRN Reason Start Time Stop Time Status Last Admin Dose Admin Acetaminophen (Tylenol) 650 mg Q4H PRN ORAL fever>100.5 03/05/17 18:30 04/04/17 18:29 03/06/17 08:18 Acetaminophen/ Hydrocodone Bitart ([place] 5/325) 1 tab Q4H PRN ORAL Moderate Pain (Pain Scale 4-6) 03/06/17 10:30 03/13/17 10:29 03/06/17 11:12 Al Hydroxide/Mg Hydroxide (Mylanta II) 30 ml Q6H PRN ORAL dyspepsia 03/05/17 18:30 04/04/17 18:29 Amlodipine Besylate (Norvasc) 5 mg DAILY ORAL 03/06/17 09:00 04/05/17 08:59 03/07/17 08:37 Aspirin (Ecotrin) 81 mg DAILY ORAL 03/06/17 09:00 04/05/17 08:59 03/06/17 08:18 Clonidine HCl (Catapres) 0.1 mg Q4H PRN ORAL For High Blood Pressure 03/06/17 11:00 04/05/17 10:59 03/07/17 11:40 Dextrose (Dextrose 50%) STAT PRN IV Hypoglycemia 03/05/17 18:30 04/04/17 18:29 Dextrose/ Electrolytes 1,000 ml @ 55 mls/hr [id number] IV 03/05/17 18:30 04/04/17 18:29 03/07/17 05:56 Diphenhydramine HCl (Benadryl) 25 mg Q6H PRN ORAL Itching/Pruritis 03/05/17 18:30 04/04/17 18:29 Enalaprilat (Vasotec) 2.5 mg Q4H PRN IV sbp more than 200 03/05/17 18:30 04/04/17 18:29 Heparin Sodium (Porcine) (Heparin 5000 units/ml) 5,000 units EVERY 12 HOURS SUBQ 03/05/17 21:00 04/04/17 20:59 03/06/17 21:00 Latanoprost (Xalatan) 1 drop BEDTIME BOTH EYES 03/05/17 21:00 04/04/17 20:59 03/06/17 20:43 Meropenem/Sodium Chloride (Merrem/Sodium Chloride) 110 ml @ 220 mls/hr Q12HR IVPB 03/05/17 21:00 03/10/17 20:59 03/07/17 08:37 Morphine Sulfate (Morphine Sulfate) 2 mg Q3H PRN IVP Severe Pain (Pain Scale 7-10) 03/06/17 10:44 03/12/17 18:29 Nitroglycerin (Ntg) 0.4 mg Q5M X 3 DOSES PRN SL Prn Chest Pain 03/05/17 18:15 04/04/17 18:14 Ondansetron HCl (Zofran) 4 mg Q6H PRN IVP Nausea & Vomiting 03/05/17 18:30 04/04/17 18:29 Polyethylene Glycol (Miralax) 17 gm HSPRN PRN ORAL Constipation 03/05/17 21:00 04/04/17 20:59 Temazepam (Restoril) 15 mg HSPRN PRN ORAL Insomnia 03/05/17 21:00 03/12/17 20:59 Allergies: Coded Allergies: NO KNOWN ALLERGIES (Verified Allergy, Unknown, 03/04/17) ROS Limited/Unobtainable: No Constitutional: Reports: no symptoms HEENT: Reports: no symptoms Cardiovascular: Reports: no symptoms Respiratory: Reports: no symptoms Gastrointestinal/Abdominal: Reports: abdominal pain Genitourinary: Reports: no symptoms Neurologic/Psychiatric: Reports: no symptoms Subjective 86 YO F admitted with epigastric pain. Now choledocholithiasis; S/P ERCP . Cover for Int Med-Dr Hunt. Objective Last Vital Signs Date Time Temp Pulse Resp B/P Pulse Ox O2 Delivery O2 Flow Rate FiO2 03/07/17 15:44 98.6 72 15 130/68 99 Room Air 03/05/17 13:25 3.0 Laboratory Tests Test 03/07/17 06:00 White Blood Count 7.2 K/UL (4.8-10.8) Red Blood Count 3.61 M/UL (4.20-5.40) L Hemoglobin 10.5 G/DL (12.0-16.0) L Hematocrit 32.8 % (37.0-47.0) L Mean Corpuscular Volume 91 FL (80-99) Mean Corpuscular Hemoglobin 29.0 PG (27.0-31.0) Mean Corpuscular Hemoglobin Concent 32.0 G/DL (32.0-36.0) Red Cell Distribution Width 14.7 % (11.6-14.8) Platelet Count 208 K/UL (150-450) Mean Platelet Volume 9.2 FL (6.5-10.1) Neutrophils (%) (Auto) 63.2 % (45.0-75.0) Lymphocytes (%) (Auto) 22.3 % (20.0-45.0) Monocytes (%) (Auto) 12.0 % (1.0-10.0) H Eosinophils (%) (Auto) 1.9 % (0.0-3.0) Basophils (%) (Auto) 0.6 % (0.0-2.0) Sodium Level 142 mEQ/L (135-145) Potassium Level 3.7 mEQ/L (3.4-4.9) Chloride Level 106 mEQ/L (98-107) Carbon Dioxide Level 27 mEQ/L (20-30) Anion Gap 9 (5-15) Blood Urea Nitrogen 9 mg/dL (7-23) Creatinine 0.7 mg/dL (0.5-0.9) Estimat Glomerular Filtration Rate mL/min (>60) Glucose Level 105 mg/dL (74-106) Calcium Level 9.0 mg/dL (8.6-10.2) Phosphorus Level 2.1 mg/dL (2.5-4.8) L Magnesium Level 1.7 mg/dL (1.7-2.5) Total Bilirubin 1.3 mg/dL (0.0-1.2) H Direct Bilirubin 0.6 mg/dL (0.1-0.3) H Aspartate Amino Transf (AST/SGOT) 32 U/L (5-40) Alanine Aminotransferase (ALT/SGPT) 70 U/L (3-33) H Alkaline Phosphatase 182 U/L (35-104) H Total Protein 6.0 g/dL (6.6-8.7) L Albumin 2.5 g/dL (3.5-5.2) L Globulin 3.5 g/dL Albumin/Globulin Ratio 0.7 (1.0-2.7) L Amylase Level 63 U/L (10-110) Lipase 35 U/L (< 60) Microbiology Date/Time Source Procedure Growth Status 03/04/17 21:00 Rectum VRE Culture - Final NO VANCOMYCIN RESISTANT ENTEROCOCCUS ... Complete Intake and Output 03/06/17 03/07/17 19:00 07:00 Intake Total 1340 ml 715 ml Balance 1340 ml 715 ml Intake Oral 1065 ml IV Total 275 ml 715 ml # Voids 3 4 # Bowel Movements 3 Objective General: alert, cooperative, no distress, appears stated age Head: normocephalic, without obvious abnormality, atraumatic Eyes: conjunctivae/corneas clear. PERRL, EOM's intact Throat: lips, mucosa, and tongue normal. MMM Neck: supple, symmetrical, trachea midline, and no JVD Lungs: clear to auscultation bilaterally Heart: regular rate and rhythm, S1, S2 normal, no murmur, click, rub or gallop Abdomen: soft, tender, non-distended, bowel sounds decreased; no masses or organomegaly Extremities: extremities normal, atraumatic, no cyanosis or edema Pulses: 2+ and symmetric Skin: skin color, texture, turgor normal; no rashes or lesions Neurologic: grossly normal, no focal deficits Assessment/Plan Problem List: (1) Pain, abdominal, epigastric (2) Choledocholithiasis with acute cholecystitis Assessment & Plan: S/P ERCP with stone removal and sphincterotomy on 03/05/17. (3) Glaucoma (4) Acute gallstone pancreatitis (5) Common bile duct (CBD) obstruction Assessment & Plan: S/P ERCP 03/05/17. See GI note. (6) Pancreatitis (7) HTN (hypertension) Assessment & Plan: Continue vasotec (8) Cholecystitis Assessment & Plan: See surgery note. Will require cholecystectomy as outpatient Status: progressing, tolerating diet KEVIN GARIBAY March 07, 2017 17:17
--- NOTE | 2017-03-07 17:42 | Infectious Diseases Prog Note ---
Assessment/Plan Assessment/Plan A: The patient is an 86-year-old female 2 Leukocytosis , SP Fever, SP Cholecystitis Transaminitis improving Pancreatitis SP ERCP with sphincterotomy and stone removal 03/05 SP abdominal pain with radiation to the back RN called the lab no blood cx done in this pt , not clear to me why I was celled for a +ve blood Cx GNR ( on this pt ) HTN Glaucoma Bilateral cataract surgery SP Total abdominal hysterectomy History of colon polyps, status post resection PLAN: cont meropenem d # 3 / 10 , upon DC will change to PO levaquin and Flagyl to complete the course 03/05 SP Zosyn d# 2 Monitor CBC Monitor BMP and LFT Monitor cultures (blood) GI is following Lap Kimi as outpatient planned Subjective Constitutional: Denies: anorexia, chills, drenching sweats, fatigue, fever, no symptoms, other Allergies: Coded Allergies: NO KNOWN ALLERGIES (Verified Allergy, Unknown, 03/04/17) Objective Vital Signs Last 24 Hour Vital Signs Date Time Temp Pulse Resp B/P Pulse Ox O2 Delivery O2 Flow Rate FiO2 03/07/17 15:44 98.6 72 15 130/68 99 Room Air 03/07/17 13:57 77 126/67 03/07/17 11:51 98.6 73 15 160/64 100 Room Air 03/07/17 11:40 160/64 03/07/17 09:54 98.1 72 17 145/70 99 Room Air 03/07/17 08:37 78 167/65 03/07/17 07:45 98.2 78 16 167/65 99 Room Air 03/07/17 04:00 98.2 85 20 160/82 100 Room Air 03/07/17 00:00 97.7 77 20 139/110 97 Room Air 03/06/17 20:00 98.4 73 20 130/61 98 Room Air Height (Feet): 4 Height (Inches): 11.00 Weight (Pounds): 145 HEENT: anicteric Respiratory/Chest: respiratory distress Cardiovascular: no gallop/murmur Genitourinary: normal external genitalia Microbiology Date/Time Source Procedure Growth Status 03/04/17 21:00 Rectum VRE Culture - Final NO VANCOMYCIN RESISTANT ENTEROCOCCUS ... Complete Laboratory Tests Test 03/07/17 06:00 White Blood Count 7.2 K/UL (4.8-10.8) Red Blood Count 3.61 M/UL (4.20-5.40) L Hemoglobin 10.5 G/DL (12.0-16.0) L Hematocrit 32.8 % (37.0-47.0) L Mean Corpuscular Volume 91 FL (80-99) Mean Corpuscular Hemoglobin 29.0 PG (27.0-31.0) Mean Corpuscular Hemoglobin Concent 32.0 G/DL (32.0-36.0) Red Cell Distribution Width 14.7 % (11.6-14.8) Platelet Count 208 K/UL (150-450) Mean Platelet Volume 9.2 FL (6.5-10.1) Neutrophils (%) (Auto) 63.2 % (45.0-75.0) Lymphocytes (%) (Auto) 22.3 % (20.0-45.0) Monocytes (%) (Auto) 12.0 % (1.0-10.0) H Eosinophils (%) (Auto) 1.9 % (0.0-3.0) Basophils (%) (Auto) 0.6 % (0.0-2.0) Sodium Level 142 mEQ/L (135-145) Potassium Level 3.7 mEQ/L (3.4-4.9) Chloride Level 106 mEQ/L (98-107) Carbon Dioxide Level 27 mEQ/L (20-30) Anion Gap 9 (5-15) Blood Urea Nitrogen 9 mg/dL (7-23) Creatinine 0.7 mg/dL (0.5-0.9) Estimat Glomerular Filtration Rate mL/min (>60) Glucose Level 105 mg/dL (74-106) Calcium Level 9.0 mg/dL (8.6-10.2) Phosphorus Level 2.1 mg/dL (2.5-4.8) L Magnesium Level 1.7 mg/dL (1.7-2.5) Total Bilirubin 1.3 mg/dL (0.0-1.2) H Direct Bilirubin 0.6 mg/dL (0.1-0.3) H Aspartate Amino Transf (AST/SGOT) 32 U/L (5-40) Alanine Aminotransferase (ALT/SGPT) 70 U/L (3-33) H Alkaline Phosphatase 182 U/L (35-104) H Total Protein 6.0 g/dL (6.6-8.7) L Albumin 2.5 g/dL (3.5-5.2) L Globulin 3.5 g/dL Albumin/Globulin Ratio 0.7 (1.0-2.7) L Amylase Level 63 U/L (10-110) Lipase 35 U/L (< 60) Current Medications Medications (Trade) Dose Ordered Sig/Keenan Route PRN Reason Start Time Stop Time Status Last Admin Dose Admin Acetaminophen (Tylenol) 650 mg Q4H PRN ORAL fever>100.5 03/05/17 18:30 04/04/17 18:29 03/06/17 08:18 Acetaminophen/ Hydrocodone Bitart ([place] 5/325) 1 tab Q4H PRN ORAL Moderate Pain (Pain Scale 4-6) 03/06/17 10:30 03/13/17 10:29 03/06/17 11:12 Al Hydroxide/Mg Hydroxide (Mylanta II) 30 ml Q6H PRN ORAL dyspepsia 03/05/17 18:30 04/04/17 18:29 Amlodipine Besylate (Norvasc) 5 mg DAILY ORAL 03/06/17 09:00 04/05/17 08:59 03/07/17 08:37 Aspirin (Ecotrin) 81 mg DAILY ORAL 03/06/17 09:00 04/05/17 08:59 03/06/17 08:18 Clonidine HCl (Catapres) 0.1 mg Q4H PRN ORAL For High Blood Pressure 03/06/17 11:00 04/05/17 10:59 03/07/17 11:40 Dextrose (Dextrose 50%) STAT PRN IV Hypoglycemia 03/05/17 18:30 04/04/17 18:29 Dextrose/ Electrolytes 1,000 ml @ 55 mls/hr [id number] IV 03/05/17 18:30 04/04/17 18:29 03/07/17 05:56 Diphenhydramine HCl (Benadryl) 25 mg Q6H PRN ORAL Itching/Pruritis 03/05/17 18:30 04/04/17 18:29 Enalaprilat (Vasotec) 2.5 mg Q4H PRN IV sbp more than 200 03/05/17 18:30 04/04/17 18:29 Heparin Sodium (Porcine) (Heparin 5000 units/ml) 5,000 units EVERY 12 HOURS SUBQ 03/05/17 21:00 04/04/17 20:59 03/06/17 21:00 Latanoprost (Xalatan) 1 drop BEDTIME BOTH EYES 03/05/17 21:00 04/04/17 20:59 03/06/17 20:43 Meropenem/Sodium Chloride (Merrem/Sodium Chloride) 110 ml @ 220 mls/hr Q12HR IVPB 03/05/17 21:00 03/10/17 20:59 03/07/17 08:37 Morphine Sulfate (Morphine Sulfate) 2 mg Q3H PRN IVP Severe Pain (Pain Scale 7-10) 03/06/17 10:44 03/12/17 18:29 Nitroglycerin (Ntg) 0.4 mg Q5M X 3 DOSES PRN SL Prn Chest Pain 03/05/17 18:15 04/04/17 18:14 Ondansetron HCl (Zofran) 4 mg Q6H PRN IVP Nausea & Vomiting 03/05/17 18:30 04/04/17 18:29 Polyethylene Glycol (Miralax) 17 gm HSPRN PRN ORAL Constipation 03/05/17 21:00 04/04/17 20:59 Temazepam (Restoril) 15 mg HSPRN PRN ORAL Insomnia 03/05/17 21:00 03/12/17 20:59 ALEX ESPARZA M.D. March 07, 2017 17:42
[2017-03-08] VITALS: BP 151/62
[2017-03-08] MEDS: D5 1/2NS w/KCl 20mEq 1,000 ML IV SCH ×2 (01:03→05:09)
[2017-03-08 04:00] VITALS: BP 157/97
[2017-03-08 07:35] LABS: BASOPHILS % (AUTO) 0.9 % (0.0-2.0); EOSINOPHILS % (AUTO) 1.8 % (0.0-3.0); LYMPHOCYTES % (AUTO) 28.6 % (20.0-45.0); MEAN CORPUSCULAR HEMOGLOBIN 29.9 PG (27.0-31.0); MEAN CORPUSCULAR HGB CONC 33.4 G/DL (32.0-36.0); MEAN CORPUSCULAR VOLUME 89 FL (80-99); MEAN PLATELET VOLUME 9.6 FL (6.5-10.1); MONOCYTES % (AUTO) 14.3 % (1.0-10.0); NEUTROPHILS % (AUTO) 54.5 % (45.0-75.0); PLATELET COUNT 249 K/UL (150-450); RED CELL DISTRIBUTION WIDTH 14.3 % (11.6-14.8); WHITE BLOOD COUNT 6.2 K/UL (4.8-10.8)
[2017-03-08 07:47] LABS: ANION GAP 12 (5-15); CALCIUM 9.3 mg/dL (8.6-10.2); CARBON DIOXIDE 26 mEQ/L (20-30); CHLORIDE 104 mEQ/L (98-107); CREATININE 0.6 mg/dL (0.5-0.9); HEMOLYSIS 0; POTASSIUM 3.7 mEQ/L (3.4-4.9); SODIUM 142 mEQ/L (135-145)
[2017-03-08 07:59] LABS: AMYLASE 60 U/L (10-110); LIPASE 31 U/L (< 60)
[2017-03-08 08:15] VITALS: BP 153/68
[2017-03-08] MEDS: Heparin 5000 units/ml inj SUBQ SCH (09:00)
[2017-03-08] MEDS: Aspirin EC 81mg tab ORAL SCH (09:06)
[2017-03-08] MEDS: Meropenem 1 GM in NS 110 ML IVPB SCH (09:08)
--- NOTE | 2017-03-08 10:23 | Infectious Diseases Prog Note ---
Assessment/Plan Assessment/Plan A; Cholecystitis Gallstone pancreatitis CBD stone s/p ERCP HPN P: continue Meropenem, change to Levaquin & Flagyl at time of discharge Subjective ROS Limited/Unobtainable: No Constitutional: Reports: no symptoms Respiratory: Reports: no symptoms Gastrointestinal/Abdominal: Reports: diarrhea Genitourinary: Reports: no symptoms Allergies: Coded Allergies: NO KNOWN ALLERGIES (Verified Allergy, Unknown, 03/04/17) Objective Vital Signs Last 24 Hour Vital Signs Date Time Temp Pulse Resp B/P Pulse Ox O2 Delivery O2 Flow Rate FiO2 03/08/17 09:07 81 153/68 03/08/17 08:15 98.1 81 23 153/68 97 Room Air 03/08/17 04:00 98.2 81 20 157/97 100 Room Air 03/08/17 00:00 97.9 66 20 151/62 100 Room Air 03/07/17 20:00 98.8 72 20 148/69 99 Room Air 03/07/17 15:44 98.6 72 15 130/68 99 Room Air 03/07/17 13:57 77 126/67 03/07/17 11:51 98.6 73 15 160/64 100 Room Air 03/07/17 11:40 160/64 Height (Feet): 4 Height (Inches): 11.00 Weight (Pounds): 145 General Appearance: no acute distress HEENT: mucous membranes moist Respiratory/Chest: lungs clear Cardiovascular: normal rate Abdomen: soft, non tender Extremities: no edema Neurologic/Psychiatric: alert, oriented x 3, responsive Laboratory Tests Test 03/08/17 06:30 White Blood Count 6.2 K/UL (4.8-10.8) Red Blood Count 3.60 M/UL (4.20-5.40) L Hemoglobin 10.8 G/DL (12.0-16.0) L Hematocrit 32.2 % (37.0-47.0) L Mean Corpuscular Volume 89 FL (80-99) Mean Corpuscular Hemoglobin 29.9 PG (27.0-31.0) Mean Corpuscular Hemoglobin Concent 33.4 G/DL (32.0-36.0) Red Cell Distribution Width 14.3 % (11.6-14.8) Platelet Count 249 K/UL (150-450) Mean Platelet Volume 9.6 FL (6.5-10.1) Neutrophils (%) (Auto) 54.5 % (45.0-75.0) Lymphocytes (%) (Auto) 28.6 % (20.0-45.0) Monocytes (%) (Auto) 14.3 % (1.0-10.0) H Eosinophils (%) (Auto) 1.8 % (0.0-3.0) Basophils (%) (Auto) 0.9 % (0.0-2.0) Sodium Level 142 mEQ/L (135-145) Potassium Level 3.7 mEQ/L (3.4-4.9) Chloride Level 104 mEQ/L (98-107) Carbon Dioxide Level 26 mEQ/L (20-30) Anion Gap 12 (5-15) Blood Urea Nitrogen 6 mg/dL (7-23) L Creatinine 0.6 mg/dL (0.5-0.9) Estimat Glomerular Filtration Rate mL/min (>60) Glucose Level 102 mg/dL (74-106) Calcium Level 9.3 mg/dL (8.6-10.2) Amylase Level 60 U/L (10-110) Lipase 31 U/L (< 60) Current Medications Medications (Trade) Dose Ordered Sig/Keenan Route PRN Reason Start Time Stop Time Status Last Admin Dose Admin Acetaminophen (Tylenol) 650 mg Q4H PRN ORAL fever>100.5 03/05/17 18:30 04/04/17 18:29 03/06/17 08:18 Acetaminophen/ Hydrocodone Bitart ([place] 5/325) 1 tab Q4H PRN ORAL Moderate Pain (Pain Scale 4-6) 03/06/17 10:30 03/13/17 10:29 03/06/17 11:12 Al Hydroxide/Mg Hydroxide (Mylanta II) 30 ml Q6H PRN ORAL dyspepsia 03/05/17 18:30 04/04/17 18:29 Amlodipine Besylate (Norvasc) 5 mg DAILY ORAL 03/06/17 09:00 04/05/17 08:59 03/08/17 09:07 Aspirin (Ecotrin) 81 mg DAILY ORAL 03/06/17 09:00 04/05/17 08:59 03/08/17 09:06 Clonidine HCl (Catapres) 0.1 mg Q4H PRN ORAL For High Blood Pressure 03/06/17 11:00 04/05/17 10:59 03/07/17 11:40 Dextrose (Dextrose 50%) STAT PRN IV Hypoglycemia 03/05/17 18:30 04/04/17 18:29 Dextrose/ Electrolytes 1,000 ml @ 55 mls/hr [id number] IV 03/05/17 18:30 04/04/17 18:29 03/08/17 05:09 Diphenhydramine HCl (Benadryl) 25 mg Q6H PRN ORAL Itching/Pruritis 03/05/17 18:30 04/04/17 18:29 Enalaprilat (Vasotec) 2.5 mg Q4H PRN IV sbp more than 200 03/05/17 18:30 04/04/17 18:29 Heparin Sodium (Porcine) (Heparin 5000 units/ml) 5,000 units EVERY 12 HOURS SUBQ 03/05/17 21:00 04/04/17 20:59 03/06/17 21:00 Latanoprost (Xalatan) 1 drop BEDTIME BOTH EYES 03/05/17 21:00 04/04/17 20:59 03/07/17 21:35 Meropenem/Sodium Chloride (Merrem/Sodium Chloride) 110 ml @ 220 mls/hr Q12HR IVPB 03/05/17 21:00 03/10/17 20:59 03/08/17 09:08 Morphine Sulfate (Morphine Sulfate) 2 mg Q3H PRN IVP Severe Pain (Pain Scale 7-10) 03/06/17 10:44 03/12/17 18:29 Nitroglycerin (Ntg) 0.4 mg Q5M X 3 DOSES PRN SL Prn Chest Pain 03/05/17 18:15 04/04/17 18:14 Ondansetron HCl (Zofran) 4 mg Q6H PRN IVP Nausea & Vomiting 03/05/17 18:30 04/04/17 18:29 Polyethylene Glycol (Miralax) 17 gm HSPRN PRN ORAL Constipation 03/05/17 21:00 04/04/17 20:59 Temazepam (Restoril) 15 mg HSPRN PRN ORAL Insomnia 03/05/17 21:00 03/12/17 20:59 SUZANNE MCDONALD March 08, 2017 10:23
[2017-03-08 12:14] VITALS: BP 170/76
[2017-03-08 16:01] VITALS: BP 119/64
--- NOTE | 2017-03-08 17:00 | Internal Med Progress Note ---
Subjective Date of Service: March 08, 2017 Physician Name El Bejarano Attending Physician Rahul Hunt MD Current Medications Medications (Trade) Dose Ordered Sig/Keenan Route PRN Reason Start Time Stop Time Status Last Admin Dose Admin Acetaminophen (Tylenol) 650 mg Q4H PRN ORAL fever>100.5 03/05/17 18:30 04/04/17 18:29 03/06/17 08:18 Acetaminophen/ Hydrocodone Bitart ([place] 5/325) 1 tab Q4H PRN ORAL Moderate Pain (Pain Scale 4-6) 03/06/17 10:30 03/13/17 10:29 03/06/17 11:12 Al Hydroxide/Mg Hydroxide (Mylanta II) 30 ml Q6H PRN ORAL dyspepsia 03/05/17 18:30 04/04/17 18:29 Amlodipine Besylate (Norvasc) 5 mg DAILY ORAL 03/06/17 09:00 04/05/17 08:59 03/08/17 09:07 Aspirin (Ecotrin) 81 mg DAILY ORAL 03/06/17 09:00 04/05/17 08:59 03/08/17 09:06 Clonidine HCl (Catapres) 0.1 mg Q4H PRN ORAL For High Blood Pressure 03/06/17 11:00 04/05/17 10:59 03/08/17 13:37 Dextrose (Dextrose 50%) STAT PRN IV Hypoglycemia 03/05/17 18:30 04/04/17 18:29 Dextrose/ Electrolytes 1,000 ml @ 55 mls/hr [id number] IV 03/05/17 18:30 04/04/17 18:29 03/08/17 05:09 Diphenhydramine HCl (Benadryl) 25 mg Q6H PRN ORAL Itching/Pruritis 03/05/17 18:30 04/04/17 18:29 Enalaprilat (Vasotec) 2.5 mg Q4H PRN IV sbp more than 200 03/05/17 18:30 04/04/17 18:29 Heparin Sodium (Porcine) (Heparin 5000 units/ml) 5,000 units EVERY 12 HOURS SUBQ 03/05/17 21:00 04/04/17 20:59 03/06/17 21:00 Latanoprost (Xalatan) 1 drop BEDTIME BOTH EYES 03/05/17 21:00 04/04/17 20:59 03/07/17 21:35 Meropenem/Sodium Chloride (Merrem/Sodium Chloride) 110 ml @ 220 mls/hr Q12HR IVPB 03/05/17 21:00 03/10/17 20:59 03/08/17 09:08 Morphine Sulfate (Morphine Sulfate) 2 mg Q3H PRN IVP Severe Pain (Pain Scale 7-10) 03/06/17 10:44 03/12/17 18:29 Nitroglycerin (Ntg) 0.4 mg Q5M X 3 DOSES PRN SL Prn Chest Pain 03/05/17 18:15 04/04/17 18:14 Ondansetron HCl (Zofran) 4 mg Q6H PRN IVP Nausea & Vomiting 03/05/17 18:30 04/04/17 18:29 Polyethylene Glycol (Miralax) 17 gm HSPRN PRN ORAL Constipation 03/05/17 21:00 04/04/17 20:59 Temazepam (Restoril) 15 mg HSPRN PRN ORAL Insomnia 03/05/17 21:00 03/12/17 20:59 Allergies: Coded Allergies: NO KNOWN ALLERGIES (Verified Allergy, Unknown, 03/04/17) ROS Limited/Unobtainable: No Constitutional: Reports: no symptoms HEENT: Reports: no symptoms Cardiovascular: Reports: no symptoms Respiratory: Reports: no symptoms Gastrointestinal/Abdominal: Reports: no symptoms Genitourinary: Reports: no symptoms Neurologic/Psychiatric: Reports: no symptoms Subjective 86 YO F admitted with epigastric pain. Now choledocholithiasis; S/P ERCP . Cover for Int Med-Dr Hunt. Objective Last Vital Signs Date Time Temp Pulse Resp B/P Pulse Ox O2 Delivery O2 Flow Rate FiO2 03/08/17 16:01 98.7 81 22 119/64 97 Room Air 03/05/17 13:25 3.0 Laboratory Tests Test 03/08/17 06:30 White Blood Count 6.2 K/UL (4.8-10.8) Red Blood Count 3.60 M/UL (4.20-5.40) L Hemoglobin 10.8 G/DL (12.0-16.0) L Hematocrit 32.2 % (37.0-47.0) L Mean Corpuscular Volume 89 FL (80-99) Mean Corpuscular Hemoglobin 29.9 PG (27.0-31.0) Mean Corpuscular Hemoglobin Concent 33.4 G/DL (32.0-36.0) Red Cell Distribution Width 14.3 % (11.6-14.8) Platelet Count 249 K/UL (150-450) Mean Platelet Volume 9.6 FL (6.5-10.1) Neutrophils (%) (Auto) 54.5 % (45.0-75.0) Lymphocytes (%) (Auto) 28.6 % (20.0-45.0) Monocytes (%) (Auto) 14.3 % (1.0-10.0) H Eosinophils (%) (Auto) 1.8 % (0.0-3.0) Basophils (%) (Auto) 0.9 % (0.0-2.0) Sodium Level 142 mEQ/L (135-145) Potassium Level 3.7 mEQ/L (3.4-4.9) Chloride Level 104 mEQ/L (98-107) Carbon Dioxide Level 26 mEQ/L (20-30) Anion Gap 12 (5-15) Blood Urea Nitrogen 6 mg/dL (7-23) L Creatinine 0.6 mg/dL (0.5-0.9) Estimat Glomerular Filtration Rate mL/min (>60) Glucose Level 102 mg/dL (74-106) Calcium Level 9.3 mg/dL (8.6-10.2) Amylase Level 60 U/L (10-110) Lipase 31 U/L (< 60) Intake and Output 03/07/17 03/08/17 19:00 07:00 Intake Total 2465 ml 550 ml Output Total 1000 ml Balance 1465 ml 550 ml Intake Oral 1640 ml IV Total 825 ml 550 ml Output Urine Total 1000 ml # Voids 4 6 # Bowel Movements 2 2 Objective General: alert, cooperative, no distress, appears stated age Head: normocephalic, without obvious abnormality, atraumatic Eyes: conjunctivae/corneas clear. PERRL, EOM's intact Throat: lips, mucosa, and tongue normal. MMM Neck: supple, symmetrical, trachea midline, and no JVD Lungs: clear to auscultation bilaterally Heart: regular rate and rhythm, S1, S2 normal, no murmur, click, rub or gallop Abdomen: soft, tender, non-distended, bowel sounds decreased; no masses or organomegaly Extremities: extremities normal, atraumatic, no cyanosis or edema Pulses: 2+ and symmetric Skin: skin color, texture, turgor normal; no rashes or lesions Neurologic: grossly normal, no focal deficits Assessment/Plan Problem List: (1) Pain, abdominal, epigastric (2) Choledocholithiasis with acute cholecystitis Assessment & Plan: S/P ERCP with stone removal and sphincterotomy on 03/05/17. (3) Glaucoma (4) Acute gallstone pancreatitis (5) Common bile duct (CBD) obstruction Assessment & Plan: S/P ERCP 03/05/17. See GI note. (6) Pancreatitis (7) HTN (hypertension) Assessment & Plan: Continue vasotec (8) Cholecystitis Assessment & Plan: See surgery note. Will require cholecystectomy as outpatient Status: tolerating diet Assessment/Plan Discharge home today with levaquin 500 mg q Day and flagyl 500 mg TID X 7 days. F/U Dr Gonzalez in 1 week. EL BEJARANO March 08, 2017 17:00
--- NOTE | 2017-03-08 17:47 | Pulmonology Progress Note ---
Assessment/Plan Problems: (1) Cholecystitis (2) Common bile duct (CBD) obstruction (3) Pancreatitis (4) HTN (hypertension) Assessment/Plan wbc decreasing improving ERCP done yesterday, stone removed supplement K Iv antibiotics, on meropenem advance diet continue Meropenem, change to Levaquin & Flagyl at time of discharge for outpatient surgery, after discharge Subjective ROS Limited/Unobtainable: No Constitutional: Reports: no symptoms HEENT: Repors: no symptoms Respiratory: Reports: no symptoms Allergies: Coded Allergies: NO KNOWN ALLERGIES (Verified Allergy, Unknown, 03/04/17) Objective Last 24 Hour Vital Signs Date Time Temp Pulse Resp B/P Pulse Ox O2 Delivery O2 Flow Rate FiO2 03/08/17 16:01 98.7 81 22 119/64 97 Room Air 03/08/17 13:37 170/76 03/08/17 12:14 98.4 79 22 170/76 99 Room Air 03/08/17 09:07 81 153/68 03/08/17 08:15 98.1 81 23 153/68 97 Room Air 03/08/17 04:00 98.2 81 20 157/97 100 Room Air 03/08/17 00:00 97.9 66 20 151/62 100 Room Air 03/07/17 20:00 98.8 72 20 148/69 99 Room Air Intake and Output 03/07/17 03/08/17 19:00 07:00 Intake Total 2465 ml 550 ml Output Total 1000 ml Balance 1465 ml 550 ml Intake Oral 1640 ml IV Total 825 ml 550 ml Output Urine Total 1000 ml # Voids 4 6 # Bowel Movements 2 2 General Appearance: WD/WN HEENT: normocephalic, atraumatic, anicteric Respiratory/Chest: chest wall non-tender, lungs clear Cardiovascular: normal peripheral pulses Abdomen: normal bowel sounds Extremities: no cyanosis Laboratory Tests 03/08/17 06:30: White Blood Count 6.2, Red Blood Count 3.60L, Hemoglobin 10.8L, Hematocrit 32.2L , Mean Corpuscular Volume 89, Mean Corpuscular Hemoglobin 29.9, Mean Corpuscular Hemoglobin Concent 33.4, Red Cell Distribution Width 14.3, Platelet Count 249, Mean Platelet Volume 9.6, Neutrophils (%) (Auto) 54.5, Lymphocytes (% ) (Auto) 28.6, Monocytes (%) (Auto) 14.3H, Eosinophils (%) (Auto) 1.8, Basophils (%) (Auto) 0.9, Sodium Level 142, Potassium Level 3.7, Chloride Level 104, Carbon Dioxide Level 26, Anion Gap 12, Blood Urea Nitrogen 6L, Creatinine 0.6, Estimat Glomerular Filtration Rate , Glucose Level 102, Calcium Level 9.3, Amylase Level 60, Lipase 31 Current Medications Medications (Trade) Dose Ordered Sig/Keenan Route PRN Reason Start Time Stop Time Status Last Admin Dose Admin Acetaminophen (Tylenol) 650 mg Q4H PRN ORAL fever>100.5 03/05/17 18:30 04/04/17 18:29 03/06/17 08:18 Acetaminophen/ Hydrocodone Bitart ([place] 5/325) 1 tab Q4H PRN ORAL Moderate Pain (Pain Scale 4-6) 03/06/17 10:30 03/13/17 10:29 03/06/17 11:12 Al Hydroxide/Mg Hydroxide (Mylanta II) 30 ml Q6H PRN ORAL dyspepsia 03/05/17 18:30 04/04/17 18:29 Amlodipine Besylate (Norvasc) 5 mg DAILY ORAL 03/06/17 09:00 04/05/17 08:59 03/08/17 09:07 Aspirin (Ecotrin) 81 mg DAILY ORAL 03/06/17 09:00 04/05/17 08:59 03/08/17 09:06 Clonidine HCl (Catapres) 0.1 mg Q4H PRN ORAL For High Blood Pressure 03/06/17 11:00 04/05/17 10:59 03/08/17 13:37 Dextrose (Dextrose 50%) STAT PRN IV Hypoglycemia 03/05/17 18:30 04/04/17 18:29 Dextrose/ Electrolytes 1,000 ml @ 55 mls/hr [id number] IV 03/05/17 18:30 04/04/17 18:29 03/08/17 05:09 Diphenhydramine HCl (Benadryl) 25 mg Q6H PRN ORAL Itching/Pruritis 03/05/17 18:30 04/04/17 18:29 Enalaprilat (Vasotec) 2.5 mg Q4H PRN IV sbp more than 200 03/05/17 18:30 04/04/17 18:29 Heparin Sodium (Porcine) (Heparin 5000 units/ml) 5,000 units EVERY 12 HOURS SUBQ 03/05/17 21:00 04/04/17 20:59 03/06/17 21:00 Latanoprost (Xalatan) 1 drop BEDTIME BOTH EYES 03/05/17 21:00 04/04/17 20:59 03/07/17 21:35 Meropenem/Sodium Chloride (Merrem/Sodium Chloride) 110 ml @ 220 mls/hr Q12HR IVPB 03/05/17 21:00 03/10/17 20:59 03/08/17 09:08 Morphine Sulfate (Morphine Sulfate) 2 mg Q3H PRN IVP Severe Pain (Pain Scale 7-10) 03/06/17 10:44 03/12/17 18:29 Nitroglycerin (Ntg) 0.4 mg Q5M X 3 DOSES PRN SL Prn Chest Pain 03/05/17 18:15 04/04/17 18:14 Ondansetron HCl (Zofran) 4 mg Q6H PRN IVP Nausea & Vomiting 03/05/17 18:30 04/04/17 18:29 Polyethylene Glycol (Miralax) 17 gm HSPRN PRN ORAL Constipation 03/05/17 21:00 04/04/17 20:59 Temazepam (Restoril) 15 mg HSPRN PRN ORAL Insomnia 03/05/17 21:00 03/12/17 20:59 STEPHANIE DUFFY March 08, 2017 17:47
[2017-03-08] MEDS ORDERED: LEVAQUIN500 MG ORAL (18:08)
[2017-03-08] MEDS ORDERED: METRONIDAZOLE500 MG ORAL (18:09)
== END 2017-03-08 18:33 | disposition home or self-care (01) | DRG 444 ==
LOC: 2E 09:42 → 4E 03-05 18:01
PROC: 0FC98ZZ Extirpation of Matter from Common Bile Duct, Via Natural or Artificial Opening Endoscopic (ICD-10-PCS; principal; 2017-03-05 13:06)
DX: K80.43 Calculus of bile duct with acute cholecystitis with obstruction (principal); K85.10 Biliary acute pancreatitis without necrosis or infection; R78.81 Bacteremia; I10 Essential (primary) hypertension; H40.9 Unspecified glaucoma; Z90.710 Acquired absence of both cervix and uterus; Z90.49 Acquired absence of other specified parts of digestive tract; Z98.42 Cataract extraction status, left eye; Z98.41 Cataract extraction status, right eye
CPT/HCPCS: 36415; 74181; 74328; 76000; 80048; 80053; 82150; 82248; 82270; 82378; 82607; 82728; 82746; 83540; 83550; 83615; 83690; 83735; 84100; 84439; 84443; 85007; 85025; 85044; 85060; 85610; 85651; 85730; 87081; 94003; 94150